=== PATIENT | female | born 1955 | race Caucasian/White ===

== ENCOUNTER 2017-05-28 17:32 | Inpatient (IN) | payer MEDICARE, BC ==
[2017-05-28] MEDS ORDERED: methylPREDNISolone Sod Succ/PF 125 MG/2 ML VIAL ONE (18:00)
[2017-05-28 18:04] LABS: Oxyhemoglobin 94.1 % (94.0-97.0)
[2017-05-28 18:05] LABS: Modified Allen's Test POSITIVE; Sodium 139 mmol/L (135-148); Vent NO
[2017-05-28] MEDS ORDERED: Magnesium 2 GM/NS 0.9% 50 ML 2 GM in Premix Bag 1 BAG IVPB SCH (18:15)
[2017-05-28 18:59] LABS: Troponin I Less than 0.010 ng/mL (< 0.028)
[2017-05-28] MEDS ORDERED: Nitroglycerin 0.4 MG TAB (25 Tab Bottle) ONE (18:59)
[2017-05-28 19:03] LABS: ALT (SGPT) 9 U/L (8-55); AST (SGOT) 14 U/L (5-34); Alkaline Phosphatase 77 U/L (40-150); Anion Gap 12 mmol/L (10-20); BUN (Urea Nitrogen) 40 mg/dL (9.8-20.1); Bilirubin, Total 0.2 mg/dL (0.2-1.2); Calc. Creatinine Clearance 0 mL/min (70-130); Calcium 9.4 mg/dL (7.8-10.44); Carbon Dioxide 36 mmol/L (23-31); Chloride 97 mmol/L (98-107); Estimated GFR-MDRD 35; Globulin 3.6 g/dL (2.4-3.5); Protein, Total 7.3 g/dL (6.0-8.3)
[2017-05-28 19:06] LABS: #Eosinphils 0.1 thou/uL (0.0-0.7); #Lymphocytes 1.2 thou/uL (1.20-3.40); #Monocytes 0.8 thou/uL (0.11-0.59); #Neutrophils 8.1 thou/uL (1.40-6.50); %Basophils 0.3 % (0.0-1.0); %Eosinophils 0.9 % (0.0-10.0); %Lymphocytes 11.8 % (21.0-51.0); %Monocytes 7.6 % (0.0-10.0); Hematocrit 34.6 % (36.0-47.0); Mean Platelet Volume 7.3 fL (7.4-10.4); Red Blood Cell (RBC) Count 3.64 mill/uL (4.20-5.40); White Blood Cell (WBC) Count 10.2 thou/uL (4.8-10.8)
--- NOTE | 2017-05-28 19:06 | RAD ---
PORTABLE CHEST 1 VIEW: Date: 05/28/17 Time: 1738 hours HISTORY: Shortness of breath. FINDINGS: Comparison made with exam of 11/19/14. The heart size is enlarged. There is pulmonary vascular congestion. Mild infiltrates in the lower jeff ng summers cannot be excluded. No pneumothoraces or large effusions are seen. IMPRESSION: Mild CHF. POS: [facility]
[2017-05-28 19:22] LABS: Basophilic Stippling SLIGHT = 1-2 cells (100X) (None Seen); Polychromasia SLIGHT = 2-3 cells (100X) (0-2/hpf); Target Cells SLIGHT = 2-5 cells (100X) (0-1/hpf)
[2017-05-28] MEDS ORDERED: Insulin Regular 300 UNITS/3 ML VIAL ONE (20:21)
[2017-05-28] MEDS ORDERED: Dextrose 50% Abboject 50 ML SYRINGE ONE (20:21)
[2017-05-28] MEDS ORDERED: Nitroglycerin 2% Ointment 1 INCH/1 GM Packet ONE (20:21)
[2017-05-28] MEDS ORDERED: Calcium Gluc 4.6 MEQ/10 ML (100 MG/ML) SLOW IVP SCH (20:30)
[2017-05-28] MEDS ORDERED: Nitroglycerin 50 MG/250 ML BOT 250 ML ONE (20:51)
[2017-05-28 21:22] LABS: Sodium 139 mmol/L (135-148)
[2017-05-28 21:23] LABS: Modified Allen's Test POSITIVE; Pressure Support 12 cmH2O; Vent NO
[2017-05-28 21:24] LABS: Mode BIPAP
--- NOTE | 2017-05-28 21:28 | PDOC.EVN ---
Event Note - Event Note Event Note: [id number] h&p dictated 1. ACute on chronic respiratory failure 2. Acute copd exacerbation 3. Hyperkalemia 4. H/O HTN 5. H/O DM type 2 plan: see orders
[2017-05-28] MEDS ORDERED: Albuterol Sulfate 2.5 mg/3 ml Neb NEB PRN (21:43)
[2017-05-28] MEDS ORDERED: Acetaminophen 325 MG TAB PO PRN (21:52)
[2017-05-28] MEDS ORDERED: cefTRIAXone\\ROCEPHIN 1 GM in Sodium Chloride 0.9% 100 ML IVPB SCH (22:00)
[2017-05-28] MEDS ORDERED: hydrALAZINE 20 MG/ML VIAL SLOW IVP PRN (22:35)
[2017-05-28] MEDS ORDERED: Azithromycin 500 MG in Sodium Chloride 0.9% 250 ML 250 ML IVPB SCH (23:00)
[2017-05-28] MEDS ORDERED: cloNIDine 0.2mg/24 Hour PATCH TD SCH (23:00)
[2017-05-28 23:45] LABS: BUN (Urea Nitrogen) 40 mg/dL (9.8-20.1); Calc. Creatinine Clearance 0 mL/min (70-130); Calcium 9.6 mg/dL (7.8-10.44); Estimated GFR-MDRD 37
[2017-05-28 23:52] LABS: Troponin I Less than 0.010 ng/mL (< 0.028)
[2017-05-28 23:54] LABS: Anion Gap 15 mmol/L (10-20); Carbon Dioxide 34 mmol/L (23-31); Chloride 97 mmol/L (98-107)
[2017-05-29] MEDS: methylPREDNISolone Sod Succ/PF 125 MG/2 ML VIAL IVP SCH ×2 (00:04→05:49)
[2017-05-29] MEDS ORDERED: Dextrose 50% Abboject 50 ML SYRINGE SLOW IVP PRN (00:25)
[2017-05-29] MEDS ORDERED: hydrALAZINE 20 MG/ML VIAL SLOW IVP PRN (00:27)
[2017-05-29] MEDS ORDERED: Furosemide 40 MG/4 ML VIAL SLOW IVP SCH (00:30)
[2017-05-29] MEDS ORDERED: Insulin Regular 300 UNITS/3 ML VIAL IVP SCH (00:30)
[2017-05-29] MEDS ORDERED: cloNIDine 0.2 MG TAB PO SCH (00:30)
[2017-05-29] MEDS ORDERED: Dextrose 50% Abboject 50 ML SYRINGE IVP PRN (01:59)
[2017-05-29] MEDS ORDERED: Dextrose 5% in Water 1,000 ML IV PRN (01:59)
[2017-05-29] MEDS ORDERED: cefTRIAXone\\ROCEPHIN 1 GM in Sodium Chloride 0.9% 100 ML IVPB SCH (02:00)
[2017-05-29 02:03] LABS: Bilirubin Negative (Negative); Blood, Urine Negative (Negative); Glucose, Urine (Dipstick) 100 mg/dL (Negative); Ketone, Urine Trace mg/dL (Negative); Nitrite Negative (Negative); Protein, Urine (Dipstick) 30 mg/dL (Neg-Trace); Urobilinogen 0.2 mg/dL (0.2-1.0)
[2017-05-29 02:05] LABS: Bacteria/HPF None Seen HPF (None Seen); Hyaline Casts/LPF 4-6 HYALINE CAST LPF (0-3 Hyaline); Squamous Epithelial 0-3 HPF (0-3); WBC/HPF 0-3 HPF (0-3)
[2017-05-29 02:16] LABS: RBC/HPF 0-3 HPF (0-3)
[2017-05-29 02:56] VITALS: BMI 50.1
[2017-05-29] MEDS: HumaLOG 300 UNITS/3 ML VIAL SC PRN ×3 (05:00→21:35)
[2017-05-29 05:40] LABS: #Eosinphils 0.1 thou/uL (0.0-0.7); #Lymphocytes 0.5 thou/uL (1.20-3.40); #Neutrophils 7.8 thou/uL (1.40-6.50); %Eosinophils 0.7 % (0.0-10.0); %Monocytes 0.5 % (0.0-10.0); Hematocrit 34.5 % (36.0-47.0); Mean Platelet Volume 7.7 fL (7.4-10.4); Red Blood Cell (RBC) Count 3.67 mill/uL (4.20-5.40); White Blood Cell (WBC) Count 8.4 thou/uL (4.8-10.8)
[2017-05-29 05:49] LABS: Anion Gap 13 mmol/L (10-20); BUN (Urea Nitrogen) 41 mg/dL (9.8-20.1); Calc. Creatinine Clearance 84 mL/min (70-130); Calcium 9.6 mg/dL (7.8-10.44); Carbon Dioxide 36 mmol/L (23-31); Chloride 94 mmol/L (98-107); Estimated GFR-MDRD 38
[2017-05-29] MEDS: Levothyroxine Sodium 25 MCG TAB PO SCH (05:49)
[2017-05-29 05:51] LABS: Troponin I Less than 0.010 ng/mL (< 0.028)
--- NOTE | 2017-05-29 06:51 | HP ---
DATE OF ADMISSION: 05/28/2017 CHIEF COMPLAINT: Dyspnea. HISTORY OF PRESENT ILLNESS: Patient is a 62-year-old female with past medical history of COPD, hype rtension, hyperlipidemia, diabetes mellitus type 2, hypothyroidism, chronic respiratory failure, obs tructive sleep apnea, now came to the hospital because of dyspnea. Dyspnea started few days back, c onstant. The patient tried breathing treatments at home, it did not help her. The patient complain s of some cough covered with some sputum production, white in color. Denies any fever, denies any c hills, denies any chest pain, denies any chest tightness, denies any palpations, denies any dizzines s. Patient has some frequent COPD exacerbation. She gets at least one or two exacerbations per yea r and her last exacerbation was approximately 1 year back. The patient's breathing got worse, so sulaiman humphries came to the ER. Upon ER arrival, the patient was hypoxic, so the patient was placed on BiPAP and the patient's breathing improved after placing on BiPAP. The patient denies any complaints at this time. PAST MEDICAL HISTORY: As per HPI. PAST SURGICAL HISTORY: Colonoscopy, bladder surgery. SOCIAL HISTORY: Denies smoking, denies alcohol, denies any drugs. FAMILY HISTORY: Denies any heart problems. REVIEW OF SYSTEMS: Constitutional: Denies any fever, denies any chills. Eyes: No vision problems . Ears: Denies hearing loss. Neck: Denies any neck pain. Cardiovascular System: Denies chest p ain, denies palpitation. Respiratory system: Positive for dyspnea, positive for cough and sputum p roduction. Integument: Denies any rash. Cranial nervous system: Denies syncope, denies lighthead edness. Psychiatric: Denies anxiety. Musculoskeletal: Denies any joint deformities. All other r eview of systems are reviewed and are negative. PHYSICAL EXAMINAITON: CONSTITUTIONAL/VITAL SIGNS: At the time of H\T\P performed, blood pressure is 227/87, pulse oximetr y 98%, heart rate 82, respiratory rate 18. GENERAL: The patient appears tired. HEENT: Anterior nares patent. Hearing normal. Teeth intact. Tongue is moist. NECK: Supple, no JVD. CARDIOVASCULAR: S1, S2 present. Regular rate and rhythm, no murmurs, no rubs, no gallops. RESPIRATORY: Diminished breath sounds present. Positive for wheezing. Positive for rhonchi on BiP AP. GASTROINTESTINAL: Abdomen is soft, nontender, no guarding, no organomegaly, no masses felt. MUSCULOSKELETAL: No edema. INTEGUMENTARY: No rashes seen. PSYCHIATRIC: Mood appropriate at this time. LABORATORY DATA: At the time of H\T\P performed, sodium 138, potassium 6.5, chloride 97, CO2 36, BU N 40, creatinine 1.49. Troponin less than 0.010, BNP 107. Serum total protein 7.3, pH 7.24, pCO2 o f 99.2, bicarbonate is 41.2. Repeat gas after placing BiPAP, pH 7.27, pCO2 88, bicarbonate is 39.8. CBC showed white count 10.2, hemoglobin 10.1, platelet count is 237. ASSESSMENT AND PLAN: The patient is 62-year-old female: 1. Acute on chronic respiratory failure, hypercapnic plus hypoxic. Plan to continue BiPAP. Plan t o monitor her respiratory status closely. Plan to consult Pulmonary and Critical care to monitor th e patient. 2. Acute chronic obstructive pulmonary disease exacerbation. Plan to start the patient on IV antib iotics and also on breathing treatments and steroids and monitor her respiratory status closely. 3. Hyperkalemia plus chronic kidney disease stage 3. Monitor creatinine closely, potassium level s ignificantly elevated. We will plan to treat medically. Hold off on Kayexalate as patient is curre ntly on BiPAP. We will give insulin, dextrose and calcium gluconate, and we will continue breathing treatments, check BMP in 4 hours. 5. History of hypertension, monitor blood pressures, continue home blood pressure medications. 6. History of diabetes type 2. Monitor blood sugars. We will do insulin sliding scale. 7. . Continue Synthroid. The case was discussed in detail with the patient. The patient is full code.
[2017-05-29] MEDS: FLUoxetine HCl 10 MG CAP PO SCH ×2 (08:56→08:59)
[2017-05-29] MEDS: Furosemide 40 MG TAB PO SCH (08:56)
[2017-05-29] MEDS: Enoxaparin Sodium 40 MG/0.4 ML SYRINGE SC SCH ×2 (08:56→09:01)
[2017-05-29] MEDS: Aspirin 81 mg Enteric Coated Tablet PO SCH (08:56)
[2017-05-29] MEDS ORDERED: Non-Formulary Item 1 EACH (Insulin Glargine,Hum.Rec.Anlog 20 UNIT) SQ SCH (09:00)
[2017-05-29] MEDS ORDERED: Fenofibrate Nanocrystallized 145 MG TAB PO SCH (09:00)
[2017-05-29] MEDS: Insulin Detemir 100 UNITS/ML 20 UNITS in Pre-Filled Syringe 1 EACH SC SCH (09:20)
[2017-05-29] MEDS: Mometasone/Formoterol 120 PUFF INHALER INH SCH ×2 (09:32→18:49)
--- NOTE | 2017-05-29 09:54 | CON ---
DATE OF CONSULTATION: 05/29/2017 HISTORY: A 62-year-old female who sees Dr. Valerio. She is morbidly obese, BMI of 49.26, height 5 feet 4, who was admitted with shortness of breath. She went to see her primary care physician efra charles, but she was told they had an appointment. She went to the ER here for ongoing evaluation. S he is markedly short of breath. She was denying any chest pain, chills or sweats. On most days, she can barely walk a couple of fee t without getting markedly dyspneic. She is a non-smoker. She sees Dr. Valerio on a regular basis. She has several lung nodules on the CT of her chest for which a PET scan was done which was negative . Additionally, she has had a formal sleep study by Dr. Valerio which shows moderate obstructive sl eep apnea, corrected with auto BiPAP. PAST MEDICAL HISTORY: Otherwise, pertinent for COPD, diabetes, peripheral vascular disease. PAST SURGICAL HISTORY: Include some kind of a leg vein surgery, bladder surgery. MEDICATIONS: From home includes low flow O2, nebulizer, prednisone 20, glyburide 10, Ventolin, andrew phylline, Aldactone, Dulera, Synthroid, Lasix, Prozac, Omnicef. REVIEW OF SYSTEMS: A 12-point review of systems otherwise unremarkable. PHYSICAL EXAMINATION: GENERAL: Her sats on 2 liters are 93, pulse 90, blood pressure 138/80. CHEST: Decreased breath sounds without any wheezing. CARDIAC: Normal S1. Normal S2. ABDOMEN: Soft. No masses. LABORATORY: White count 8000, H\T\H 9 and 34, platelet count is 217. Creatinine 1.4, potassium 6. IMPRESSION: 1. Acute on chronic respiratory failure. 2. Morbid obesity. 3. Sleep apnea. 4. Diabetes. PLAN: I agree with empiric antibiotics, continue steroids, nebulizer treatments. She can be moved to telemetry. PT and supportive care. I will follow. This is a 45 minutes critical care time.
--- NOTE | 2017-05-29 12:01 | CON ---
DATE OF CONSULTATION: 05/29/2017 SERVICE: Renal Medicine. HISTORY OF PRESENT ILLNESS: Ms. Lewis is a 62-year-old white female with a history of hypertension, COPD, type 2 diabetes mellitus, hypothyroidism, and admitted for mild shortness of breath. We are being consulted for her hyperkalemia. Initial potassium was 6.5. She was given Kayexalate with imp rovement in the potassium to 6.0. Please note, patient may have underlying chronic heart problem fr om diabetic nephropathy. Please note, she has longstanding diabetes. REVIEW OF SYSTEMS: Mild shortness of breath, no chest pain, no syncopal episode, chronic leg edema, no nausea, no vomiting, no diarrhea, no headache. Appetite and energy level are fair. No abdomina l pain, no hematochezia, no melena, no hematemesis, no headache, no sore throat, no fever or chills. MEDICATIONS: DuoNeb q.4 hours, Ecotrin 81 mg tab once a day, ceftriaxone 1 gram q.24 hours, clonidi ne patch TTS 2 every 7 days, Lovenox 40 mg subcu daily, TriCor 145 mg once a day, Prozac 10 mg daily , furosemide 40 mg daily, hydralazine 10 mg IV q.6 hours p.r.n., insulin detemir 20 units subcu q.a. m., Humalog sliding scale, Synthroid 25 mcg daily, Solu-Medrol 40 mg IV daily, Dulera oral inhaler. PAST MEDICAL HISTORY: 1. COPD. 2. Type 2 diabetes mellitus, ? of chronic renal failure. 3. Depression. 4. Hyperlipidemia. 5. History of obstructive sleep apnea. 6. Chronic low back pain. 7. Hypertension. PAST SURGICAL HISTORY: 1. Status post colonoscopy. 2. Status post bladder surgery. 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 No IV drug abuse. Occasional alcohol, no smoking. Sedentary life style. ALLERGIES: IODINE and STATINS?. IMMUNIZATIONS: Not up-to-date. HOSPITALIZATIONS: Please see past medical history. TRAUMA: None. FAMILY HISTORY: Noncontributory. PHYSICAL EXAMINATION: VITAL SIGNS: Blood pressure is 162/65, heart rate 88, respiratory rate is 21, pulse ox 94%. GENERAL EXAM: Awake, supine, comfortable, morbidly obese. SKIN: Adequate turgor. HEENT: Pinkish conjunctivae, anicteric sclerae. NECK: No neck mass, no carotid bruits, no JVD. CHEST: No deformities. LUNGS: Decreased breath sounds. No wheezing, no crackles. HEART: Normal sinus rhythm. No murmur, no gallops, no rubs. ABDOMEN: Globular, soft, nontender, no masses. EXTREMITIES: No edema, no deformities. LABORATORY AND X-RAY FINDINGS: Laboratories of 05/29/2017, white count 8.4, hemoglobin 9.8, hematoc rit 34.5, platelet count is 217,000. Sodium 137, potassium 6, chloride 94, carbon dioxide 36, BUN 4 1, creatinine 1.41, glucose 417, calcium 9.6. Urinalysis shows specific gravity 18 and protein is 30. Chest x-ray of 05/28/2017, mild CHF. ASSESSMENT AND PLAN: 1. Shortness of breath -- multifactorial. This could be chronic obstructive pulmonary disease exac erbation as well as from congestive heart failure. She is currently receiving Lasix at the present time. Continue current management. 2. Chronic renal failure -- this could be underlying diabetic nephropathy as suggested by the prote inuria. Continue supportive care. 3. Hyperkalemia. This is most likely drug induced. Please note she was on spironolactone and on A CE inhibitors. These medications have been discontinued. Continue supportive care. There is no in dication for any dialytic intervention with this patient.
--- NOTE | 2017-05-29 12:09 | PDOC.PN ---
- Subjective Encounter Start Date: 05/29/17 Encounter Start Time: 07:15 Subjective: had a large bm this am -: no chest pain or sob -: wants her bipap taken off - Objective MAR Reviewed: Yes Vital Signs & Weight: Vital Signs (12 hours) Temp Pulse Resp BP Pulse Ox 05/29/17 09:32 90 22 H 98 05/29/17 09:29 98 05/29/17 08:00 99.4 F 89 20 94 L 05/29/17 07:51 92 20 92 L 05/29/17 07:48 92 20 92 L 05/29/17 04:00 96.9 F L 05/29/17 02:27 90 20 86 L 05/29/17 02:26 90 28 H 86 L 05/29/17 01:07 226/86 H 05/29/17 01:06 78 185/70 H Weight Weight 286 lb 9.615 oz Most Recent Monitor Data Heart Rate from ECG 95 NIBP 149/69 NIBP BP-Mean 90 Respiration from ECG 25 SpO2 96 I&O: 05/28/17 05/29/17 05/30/17 06:59 06:59 06:59 Intake Total 500 300 Output Total 1865 875 Balance -6374 -635 Result Diagrams: 05/29/17 05:23 05/29/17 05:23 Additional Labs: Accuchecks 05/29/17 05/29/17 05/29/17 09:19 05:22 00:22 POC Glucose 276 H 398 H 276 H Phys Exam - Physical Examination HEENT: PERRLA, moist MMs Neck: no JVD, supple Respiratory: no wheezing, no rales Cardiovascular: RRR, no significant murmur Gastrointestinal: soft, non-tender, positive bowel sounds Musculoskeletal: no edema, pulses present Neurological: non-focal, moves all 4 limbs Dx/Plan (1) Acute respiratory failure with hypoxia Code(s): J96.01 - ACUTE RESPIRATORY FAILURE WITH HYPOXIA Status: Acute (2) Hyperkalemia Code(s): E87.5 - HYPERKALEMIA Status: Acute (3) COPD with exacerbation Code(s): J44.1 - CHRONIC OBSTRUCTIVE PULMONARY DISEASE W (ACUTE) EXACERBATION Status: Acute (4) DM type 2 (diabetes mellitus, type 2) Status: Chronic Qualifiers: Diabetes mellitus complication status: with hyperglycemia 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 insulin use: with jail use Qualified Code(s): E11.65 - Type 2 diabetes mellitus with hyperglycemia; Z79.4 - alf (current) use of insulin; Z79.4 - watermelon 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 (current) use of insulin; Z79.4 - alf ( current) use of insulin; Z79.4 - alf (current) use of insulin (5) HTN (hypertension) Code(s): I10 - ESSENTIAL (PRIMARY) HYPERTENSION Status: Chronic Qualifiers: Hypertension type: essential hypertension Qualified Code(s): I10 - Essential (primary) hypertension (6) Dyslipidemia Code(s): E78.5 - HYPERLIPIDEMIA, UNSPECIFIED Status: Chronic (7) Obesity Code(s): E66.9 - OBESITY, UNSPECIFIED Status: Chronic Qualifiers: Body mass index: BMI 45.0-49.9 (8) Chronic anemia Code(s): D64.9 - ANEMIA, UNSPECIFIED Status: Chronic - Plan is on bipap, wants to come out of it, await pulm consultation -: hyperkalemia, has been consulted, got 1 dose of kayexalate in ER -: on zithromax and ceftriaxone -: steroids iv and nebs -: oral diet once off bipap-heart healthy, 1800kcal ada * . Review of Systems - Medications/Allergies Allergies/Adverse Reactions: Allergies Allergy/AdvReac Type Severity Reaction Status Date / Time influenza virus vacc Allergy Verified 11/19/14 20:12 trivalent, spl [From Fluzone] iodine Allergy Verified 11/19/14 20:12 shellfish derived Allergy Verified 11/19/14 20:12 Statins Allergy Uncoded 05/28/17 22:21 Medications: Current Medications Acetaminophen (Tylenol) 650 mg PO Q4H PRN PRN Reason: Headache/Fever or Pain Albuterol Sulfate (Ventolin) 2.5 mg NEB [id number] PRN PRN Reason: SOB &/or Wheezing Albuterol/Ipratropium (Duoneb) 3 ml NEB [id number] [facility] Last Admin: 05/29/17 07:48 Dose: 3 ml Aspirin (Ecotrin) 81 mg PO DAILY [facility] Last Admin: 05/29/17 08:56 Dose: 81 mg Clonidine (Ojyluyls-Mme-4) 0.2 mg TD Q7D [facility] Last Admin: 05/28/17 23:04 Dose: 0.2 mg Dextrose/Water (Dextrose 50%) 25 gm SLOW IVP ONE PRN PRN Reason: Hypoglycemia Stop: 05/30/17 00:26 Last Admin: 05/29/17 01:08 Dose: 25 gm Dextrose/Water (Dextrose 50%) 25 gm IVP PRN PRN PRN Reason: HYPOGLYCEMIA PROTOCOL Furosemide (Lasix) 40 mg PO DAILY-AC [facility] Last Admin: 05/29/17 08:56 Dose: 40 mg Glucagon (Glucagon) 1 mg IM PRN PRN PRN Reason: HYPOGLYCEMIA PROTOCOL Heparin Sodium (Porcine) (Heparin) 5,000 units SC BID [facility] Hydralazine HCl (Apresoline) 10 mg SLOW IVP Q6H PRN PRN Reason: SBP > 160 [facility] Last Admin: 05/29/17 01:06 Dose: 10 mg Insulin Detemir 20 units/ (Miscellaneous Medication) 0.2 mls @ 0 mls/hr SC QAM [facility] Last Admin: 05/29/17 09:20 Dose: 0.2 mls Ceftriaxone Sodium 1 gm/ (Sodium Chloride) 100 mls @ 200 mls/hr IVPB Q24HR [facility] Last Admin: 05/29/17 02:25 Dose: 100 mls Dextrose/Water (D5w) 1,000 mls @ 0 mls/hr IV INF PRN; As Directed PRN Reason: HYPOGLYCEMIA PROTOCOL Insulin Human Lispro (Humalog) 0 units SC .MILD SLIDING SCALE PRN; Protocol PRN Reason: MILD SLIDING SCALE Last Admin: 05/29/17 05:00 Dose: 6 unit Levothyroxine Sodium (Synthroid) 25 mcg PO 0600 [facility] Last Admin: 05/29/17 05:49 Dose: 25 mcg Methylprednisolone Sodium Succinate (Solu-Medrol) 40 mg IVP BID [facility] Mometasone Furoate/Formoterol Fumar (Dulera 200 Mcg/5 Mcg Inhaler) 1 puff INH BID-RT [facility] Last Admin: 05/29/17 09:32 Dose: 1 puff Sodium Chloride (Flush - Normal Saline) 10 ml IVF Q12HR [facility] Last Admin: 05/29/17 08:57 Dose: 10 ml Sodium Chloride (Flush - Normal Saline) 10 ml IVF PRN PRN PRN Reason: Saline Flush Theophylline (Theophylline Er) 600 mg PO DAILY [facility] Last Admin: 05/29/17 08:58 Dose: 600 mg
[2017-05-29] MEDS: Acetaminophen 325 MG TAB PO PRN (21:28)
[2017-05-29] MEDS: Heparin 5,000 UNITS/ML VIAL SC SCH (21:28)
[2017-05-29] MEDS ORDERED: cefTRIAXone\\ROCEPHIN 1 GM, Admixture Fee 1 EACH in Sodium Chloride 0.9% 100 ML IVPB SCH (23:00)
[2017-05-30 05:26] LABS: #Lymphocytes 0.7 thou/uL (1.20-3.40); #Monocytes 0.4 thou/uL (0.11-0.59); #Neutrophils 10.6 thou/uL (1.40-6.50); %Eosinophils 0.4 % (0.0-10.0); %Lymphocytes 6.3 % (21.0-51.0); %Monocytes 3.6 % (0.0-10.0); Hematocrit 34.7 % (36.0-47.0); Mean Platelet Volume 7.6 fL (7.4-10.4); Red Blood Cell (RBC) Count 3.76 mill/uL (4.20-5.40); White Blood Cell (WBC) Count 11.8 thou/uL (4.8-10.8)
[2017-05-30 05:42] LABS: BUN (Urea Nitrogen) 37 mg/dL (9.8-20.1); Calc. Creatinine Clearance 83 mL/min (70-130); Calcium 9.3 mg/dL (7.8-10.44); Estimated GFR-MDRD 37
[2017-05-30] MEDS: Levothyroxine Sodium 25 MCG TAB PO SCH (05:45)
[2017-05-30] MEDS: Acetaminophen 325 MG TAB PO PRN ×2 (05:45→22:48)
[2017-05-30] MEDS: Furosemide 40 MG TAB PO SCH (05:45)
[2017-05-30 05:51] LABS: Anion Gap 12 mmol/L (10-20); Carbon Dioxide 40 mmol/L (23-31); Chloride 91 mmol/L (98-107)
[2017-05-30] MEDS: Mometasone/Formoterol 120 PUFF INHALER INH SCH ×2 (06:04→18:35)
[2017-05-30] MEDS: HumaLOG 300 UNITS/3 ML VIAL SC PRN ×4 (06:37→21:47)
[2017-05-30] MEDS: Aspirin 81 mg Enteric Coated Tablet PO SCH (09:14)
[2017-05-30] MEDS: metFORMIN 500 MG TAB PO SCH ×2 (09:14→16:59)
[2017-05-30] MEDS: Amlodipine 10 MG TAB PO SCH (09:17)
[2017-05-30] MEDS: Insulin Detemir 100 UNITS/ML 20 UNITS in Pre-Filled Syringe 1 EACH SC SCH (09:18)
[2017-05-30] MEDS: Heparin 5,000 UNITS/ML VIAL SC SCH ×2 (09:20→20:27)
--- NOTE | 2017-05-30 11:53 | PDOC.PN ---
- Subjective Encounter Start Date: 05/30/17 Encounter Start Time: 10:30 Subjective: is sitting in chair, no sob - Objective MAR Reviewed: Yes Vital Signs & Weight: Vital Signs (12 hours) Temp Pulse Resp BP BP Pulse Ox 05/30/17 11:33 98.6 F 96 20 174/54 H 93 L 05/30/17 10:27 89 16 95 05/30/17 09:17 97 05/30/17 09:15 203/68 H 05/30/17 08:00 98.6 F 89 16 95 05/30/17 07:47 98.6 F 90 20 185/62 H 95 05/30/17 06:01 88 16 91 L 05/30/17 04:00 98.7 F 95 19 163/55 H 91 L 05/30/17 02:29 92 16 92 L Weight Weight 286 lb 9.615 oz Most Recent Monitor Data Heart Rate from ECG 93 NIBP 143/64 NIBP BP-Mean 70 Respiration from ECG 28 SpO2 85 I&O: 05/29/17 05/30/17 05/31/17 06:59 06:59 06:59 Intake Total 500 850 Output Total 2300 2064 Balance -9250 -6298 Result Diagrams: 05/30/17 04:31 05/30/17 04:31 Additional Labs: Accuchecks 05/30/17 05/29/17 06:05 20:49 POC Glucose 363 H 430 H Phys Exam - Physical Examination HEENT: PERRLA, moist MMs Neck: no JVD, supple Respiratory: no wheezing, no rales Cardiovascular: RRR, no significant murmur Gastrointestinal: soft, non-tender, positive bowel sounds Musculoskeletal: no edema, pulses present Neurological: non-focal, moves all 4 limbs Psychiatric: A&O x 3 Dx/Plan (1) Acute respiratory failure with hypoxia Code(s): J96.01 - ACUTE RESPIRATORY FAILURE WITH HYPOXIA Status: Resolved (2) Hyperkalemia Code(s): E87.5 - HYPERKALEMIA Status: Resolved (3) COPD with exacerbation Code(s): J44.1 - CHRONIC OBSTRUCTIVE PULMONARY DISEASE W (ACUTE) EXACERBATION Status: Acute (4) DM type 2 (diabetes mellitus, type 2) Status: Chronic Qualifiers: Diabetes mellitus complication status: with hyperglycemia Diabetes mellitus nursing 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 Qualified Code(s): E11.65 - Type 2 diabetes mellitus with hyperglycemia; Z79.4 - MCC (current) use of insulin; Z79.4 - MCC (current) use of insulin; Z79.4 - MCC ( current) use of insulin; Z79.4 - MCC (current) use of insulin (5) HTN (hypertension) Code(s): I10 - ESSENTIAL (PRIMARY) HYPERTENSION Status: Chronic Qualifiers: Hypertension type: essential hypertension Qualified Code(s): I10 - Essential (primary) hypertension (6) Dyslipidemia Code(s): E78.5 - HYPERLIPIDEMIA, UNSPECIFIED Status: Chronic (7) Obesity Code(s): E66.9 - OBESITY, UNSPECIFIED Status: Chronic Qualifiers: Body mass index: BMI 45.0-49.9 (8) Chronic anemia Code(s): D64.9 - ANEMIA, UNSPECIFIED Status: Chronic (9) Sleep apnea Code(s): G47.30 - SLEEP APNEA, UNSPECIFIED Status: Chronic - Plan says her home cpap might be broken, she has called her Co and awaiting repa -: ir, will need cpap at night here -: to amb in [facility], i.spirometer -: dm is uncontrolled due to steroids, will continue her home meds -: december tx to med floor if ok with * . Review of Systems - Medications/Allergies Allergies/Adverse Reactions: Allergies Allergy/AdvReac Type Severity Reaction Status Date / Time influenza virus vacc Allergy Verified 11/19/14 20:12 trivalent, spl [From Fluzone] iodine Allergy Verified 11/19/14 20:12 shellfish derived Allergy Verified 11/19/14 20:12 Statins Allergy Uncoded 05/28/17 22:21 Medications: Current Medications Acetaminophen (Tylenol) 650 mg PO Q4H PRN PRN Reason: Headache/Fever or Pain Last Admin: 05/30/17 05:45 Dose: 650 mg Albuterol Sulfate (Ventolin) 2.5 mg NEB [id number] PRN PRN Reason: SOB &/or Wheezing Albuterol/Ipratropium (Duoneb) 3 ml NEB [id number] [facility] Last Admin: 05/30/17 10:27 Dose: 3 ml Amlodipine Besylate (Norvasc) 10 mg PO DAILY [facility] Last Admin: 05/30/17 09:17 Dose: 10 mg Aspirin (Ecotrin) 81 mg PO DAILY [facility] Last Admin: 05/30/17 09:14 Dose: 81 mg Benazepril HCl (Lotensin) 20 mg PO DAILY [facility] Last Admin: 05/30/17 09:15 Dose: 20 mg Cefdinir (Omnicef) 300 mg PO BID [facility] Clonidine (Fojfhkcu-Hse-8) 0.2 mg TD Q7D [facility] Last Admin: 05/28/17 23:04 Dose: 0.2 mg Dextrose/Water (Dextrose 50%) 25 gm IVP PRN PRN PRN Reason: HYPOGLYCEMIA PROTOCOL Furosemide (Lasix) 40 mg PO DAILY-[facility] Last Admin: 05/30/17 05:45 Dose: 40 mg Glipizide (Glucotrol Xl) 10 mg PO BID-[facility] Last Admin: 05/30/17 09:13 Dose: 10 mg Glucagon (Glucagon) 1 mg IM PRN PRN PRN Reason: HYPOGLYCEMIA PROTOCOL Heparin Sodium (Porcine) (Heparin) 5,000 units SC BID [facility] Last Admin: 05/30/17 09:20 Dose: 5,000 units Hydralazine HCl (Apresoline) 10 mg SLOW IVP Q6H PRN PRN Reason: SBP > 160 [facility] Last Admin: 05/29/17 01:06 Dose: 10 mg Insulin Detemir 20 units/ (Miscellaneous Medication) 0.2 mls @ 0 mls/hr SC [facility] Last Admin: 05/30/17 09:18 Dose: 0.2 mls Dextrose/Water (D5w) 1,000 mls @ 0 mls/hr IV INF PRN; As Directed PRN Reason: HYPOGLYCEMIA PROTOCOL Insulin Human Lispro (Humalog) 0 units SC .MILD SLIDING SCALE PRN; Protocol PRN Reason: MILD SLIDING SCALE Last Admin: 05/30/17 06:37 Dose: 6 unit Levothyroxine Sodium (Synthroid) 25 mcg PO 0600 [facility] Metformin HCl (Glucophage) 500 mg PO BID-[facility] Last Admin: 05/30/17 09:14 Dose: 500 mg Mometasone Furoate/Formoterol Fumar (Dulera 200 Mcg/5 Mcg Inhaler) 1 puff INH BID-RT [facility] Last Admin: 05/30/17 06:04 Dose: 1 puff Prednisone (Prednisone) 40 mg PO QAM-[facility] Sodium Chloride (Flush - Normal Saline) 10 ml IVF Q12HR [facility] Last Admin: 05/30/17 09:20 Dose: 10 ml Sodium Chloride (Flush - Normal Saline) 10 ml IVF PRN PRN PRN Reason: Saline Flush Theophylline (Theophylline Er) 600 mg PO DAILY [facility] Last Admin: 05/30/17 09:17 Dose: 600 mg
--- NOTE | 2017-05-30 13:10 | PRG ---
DATE OF SERVICE: 05/30/2017 SUBJECTIVE: This is a patient of Dr. Valerio, who said this morning she is better. She would like to be moved to an unmonitored bed. She is not coughing or wheezing. PHYSICAL EXAMINATION: VITAL SIGNS: Blood pressure 185/62, pulse 90, respirations 20, and sats are 95%. CHEST: Decreased breath sounds, no wheezing. CARDIAC: Normal S1 and S2. No gallops. ABDOMEN: Soft. No masses. LABORATORY DATA: White count 11,000, hemoglobin and hematocrit 10 and 34, platelet count normal. C reatinine 1.4. IMPRESSION: Morbid obesity, respiratory failure, renal failure, chronic obstructive pulmonary disea se, bronchitis, diabetes, obstructive sleep apnea. PLAN: Switch over to oral antibiotics and prednisone. She will be transferred to medical floor.
[2017-05-30] MEDS: Cefdinir 300 MG CAP PO SCH (20:27)
[2017-05-31] MEDS: Levothyroxine Sodium 25 MCG TAB PO SCH (05:42)
[2017-05-31] MEDS: HumaLOG 300 UNITS/3 ML VIAL SC PRN ×3 (05:42→21:48)
[2017-05-31] MEDS: Mometasone/Formoterol 120 PUFF INHALER INH SCH ×2 (06:18→18:29)
[2017-05-31] MEDS ORDERED: Mometasone/Formoterol 120 PUFF INHALER INH SCH (07:00)
[2017-05-31] MEDS: Heparin 5,000 UNITS/ML VIAL SC SCH ×2 (08:00→21:47)
[2017-05-31] MEDS: Insulin Detemir 100 UNITS/ML 20 UNITS in Pre-Filled Syringe 1 EACH SC SCH (08:00)
[2017-05-31] MEDS: predniSONE 20 MG TAB PO SCH (08:01)
[2017-05-31] MEDS: Amlodipine 10 MG TAB PO SCH (08:01)
[2017-05-31] MEDS: Cefdinir 300 MG CAP PO SCH ×2 (08:01→21:47)
[2017-05-31] MEDS: Aspirin 81 mg Enteric Coated Tablet PO SCH (08:01)
[2017-05-31] MEDS: Furosemide 40 MG TAB PO SCH (08:02)
[2017-05-31] MEDS: metFORMIN 500 MG TAB PO SCH ×2 (08:02→16:42)
[2017-05-31 08:11] LABS: #Monocytes 1.2 thou/uL (0.11-0.59); #Neutrophils 8.2 thou/uL (1.40-6.50); %Basophils 0.2 % (0.0-1.0); %Eosinophils 0.4 % (0.0-10.0); %Lymphocytes 17.3 % (21.0-51.0); %Monocytes 10.2 % (0.0-10.0); Hematocrit 35.8 % (36.0-47.0); Mean Platelet Volume 7.6 fL (7.4-10.4); Red Blood Cell (RBC) Count 3.88 mill/uL (4.20-5.40); White Blood Cell (WBC) Count 11.4 thou/uL (4.8-10.8)
[2017-05-31 08:29] LABS: BUN (Urea Nitrogen) 38 mg/dL (9.8-20.1); Calc. Creatinine Clearance 94 mL/min (70-130); Calcium 9.4 mg/dL (7.8-10.44); Estimated GFR-MDRD 43
[2017-05-31 08:48] LABS: Chloride 91 mmol/L (98-107)
[2017-05-31 08:51] LABS: Anion Gap 13 mmol/L (10-20)
[2017-05-31 08:53] LABS: Carbon Dioxide 41 mmol/L (23-31)
--- NOTE | 2017-05-31 11:59 | PDOC.PN ---
- Subjective Encounter Start Date: 05/31/17 Encounter Start Time: 11:25 Subjective: breathing better, is sitting in chair - Objective MAR Reviewed: Yes Vital Signs & Weight: Vital Signs (12 hours) Temp Pulse Resp BP BP Pulse Ox 05/31/17 10:56 87 16 96 05/31/17 09:29 203/68 H 05/31/17 08:01 87 05/31/17 08:00 98.2 F 87 18 93 L 05/31/17 07:44 98.5 F 87 18 169/67 H 93 L 05/31/17 06:18 81 16 97 05/31/17 06:16 78 16 97 05/31/17 05:20 98.8 F 78 18 154/74 H 95 05/31/17 03:39 96 05/31/17 02:23 81 16 96 05/31/17 00:49 99.2 F 82 18 155/61 H 95 Weight Weight 286 lb 9.615 oz Most Recent Monitor Data Heart Rate from ECG 93 NIBP 143/64 NIBP BP-Mean 70 Respiration from ECG 28 SpO2 85 I&O: 05/30/17 05/31/17 06/01/17 06:59 06:59 06:59 Intake Total 850 850 360 Output Total 3345 Balance -2495 850 360 Result Diagrams: 05/31/17 07:35 05/31/17 07:35 Additional Labs: Accuchecks 05/31/17 05/30/17 05/30/17 04:26 20:09 16:36 POC Glucose 194 H 438 H 444 H 05/30/17 11:05 POC Glucose 391 H Phys Exam - Physical Examination HEENT: PERRLA, moist MMs Neck: no JVD, supple Respiratory: no wheezing, no rales Cardiovascular: RRR, no significant murmur Gastrointestinal: soft, non-tender, positive bowel sounds Musculoskeletal: no edema, pulses present Neurological: non-focal, moves all 4 limbs Psychiatric: A&O x 3 Dx/Plan (1) Acute respiratory failure with hypoxia Code(s): J96.01 - ACUTE RESPIRATORY FAILURE WITH HYPOXIA Status: Resolved (2) Hyperkalemia Code(s): E87.5 - HYPERKALEMIA Status: Resolved (3) COPD with exacerbation Code(s): J44.1 - CHRONIC OBSTRUCTIVE PULMONARY DISEASE W (ACUTE) EXACERBATION Status: Acute (4) DM type 2 (diabetes mellitus, type 2) Status: Chronic Qualifiers: Diabetes mellitus complication status: with hyperglycemia Diabetes mellitus residential insulin use: with residential use Qualified Code(s): E11.65 - Type 2 diabetes mellitus with hyperglycemia; Z79.4 - buttermaker continuous churn (current) use of insulin; Z79.4 - buttermaker continuous churn (current) use of insulin; Z79.4 - shelter ( current) use of insulin; Z79.4 - shelter (current) use of insulin (5) HTN (hypertension) Code(s): I10 - ESSENTIAL (PRIMARY) HYPERTENSION Status: Chronic Qualifiers: Hypertension type: essential hypertension Qualified Code(s): I10 - Essential (primary) hypertension (6) Dyslipidemia Code(s): E78.5 - HYPERLIPIDEMIA, UNSPECIFIED Status: Chronic (7) Obesity Code(s): E66.9 - OBESITY, UNSPECIFIED Status: Chronic Qualifiers: Body mass index: BMI 45.0-49.9 (8) Chronic anemia Code(s): D64.9 - ANEMIA, UNSPECIFIED Status: Chronic (9) Sleep apnea Code(s): G47.30 - SLEEP APNEA, UNSPECIFIED Status: Chronic - Plan increase levemir to 20u bid -: pt is on prednisone 40mg daily with omnicef -: dc in am -: needs her cpap machine to be looked at by her company prior to dc -: uses 2 liters by nc 02/03 at home per patient * . Review of Systems - Medications/Allergies Allergies/Adverse Reactions: Allergies Allergy/AdvReac Type Severity Reaction Status Date / Time influenza virus vacc Allergy Verified 11/19/14 20:12 trivalent, spl [From Fluzone] iodine Allergy Verified 11/19/14 20:12 shellfish derived Allergy Verified 11/19/14 20:12 Statins Allergy Uncoded 05/28/17 22:21 Medications: Current Medications Acetaminophen (Tylenol) 650 mg PO Q4H PRN PRN Reason: Headache/Fever or Pain Last Admin: 05/30/17 22:48 Dose: 650 mg Albuterol Sulfate (Ventolin) 2.5 mg NEB [id number] PRN PRN Reason: SOB &/or Wheezing Albuterol/Ipratropium (Duoneb) 3 ml NEB [id number] Last Admin: 05/31/17 10:56 Dose: 3 ml Amlodipine Besylate (Norvasc) 10 mg PO DAILY [facility] Last Admin: 05/31/17 08:01 Dose: 10 mg Aspirin (Ecotrin) 81 mg PO DAILY [facility] Last Admin: 05/31/17 08:01 Dose: 81 mg Benazepril HCl (Lotensin) 20 mg PO DAILY [facility] Last Admin: 05/31/17 09:29 Dose: 20 mg Cefdinir (Omnicef) 300 mg PO BID [facility] Last Admin: 05/31/17 08:01 Dose: 300 mg Clonidine ([id number]-[id number]-4) 0.2 mg TD Q7D [facility] Last Admin: 05/28/17 23:04 Dose: 0.2 mg Dextrose/Water (Dextrose 50%) 25 gm IVP PRN PRN PRN Reason: HYPOGLYCEMIA PROTOCOL Furosemide (Lasix) 40 mg PO DAILY-[facility] Last Admin: 05/31/17 08:02 Dose: 40 mg Glipizide (Glucotrol Xl) 10 mg PO BID-[facility] Last Admin: 05/31/17 09:29 Dose: 10 mg Glucagon (Glucagon) 1 mg IM PRN PRN PRN Reason: HYPOGLYCEMIA PROTOCOL Heparin Sodium (Porcine) (Heparin) 5,000 units SC BID [facility] Last Admin: 05/31/17 08:00 Dose: 5,000 units Hydralazine HCl (Apresoline) 10 mg SLOW IVP Q6H PRN PRN Reason: SBP > 160 [facility] Last Admin: 05/29/17 01:06 Dose: 10 mg Dextrose/Water (D5w) 1,000 mls @ 0 mls/hr IV INF PRN; As Directed PRN Reason: HYPOGLYCEMIA PROTOCOL Insulin Detemir 20 units/ (Miscellaneous Medication) 0.2 mls @ 0 mls/hr SC BID [facility] Insulin Human Lispro (Humalog) 0 units SC .MILD SLIDING SCALE PRN; Protocol PRN Reason: MILD SLIDING SCALE Last Admin: 05/31/17 05:42 Dose: 2 unit Insulin Human Lispro (Humalog) 0 units SC .BEDTIME SLIDING SC PRN; Protocol PRN Reason: BEDTIME SLIDING SCALE Last Admin: 05/30/17 21:47 Dose: 5 unit Levothyroxine Sodium (Synthroid) 25 mcg PO 0600 [facility] Last Admin: 05/31/17 05:42 Dose: 25 mcg Metformin HCl (Glucophage) 500 mg PO BID-[facility] Last Admin: 05/31/17 08:02 Dose: 500 mg Mometasone Furoate/Formoterol Fumar (Dulera 200 Mcg/5 Mcg Inhaler) 1 puff INH BID-RT [facility] Last Admin: 05/31/17 06:18 Dose: 1 puff Prednisone (Prednisone) 40 mg PO QAM-[facility] Last Admin: 05/31/17 08:01 Dose: 40 mg Sodium Chloride (Flush - Normal Saline) 10 ml IVF Q12HR [facility] Last Admin: 05/31/17 08:02 Dose: 10 ml Sodium Chloride (Flush - Normal Saline) 10 ml IVF PRN PRN PRN Reason: Saline Flush Theophylline (Theophylline Er) 600 mg PO DAILY [facility] Last Admin: 05/31/17 09:29 Dose: 600 mg
--- NOTE | 2017-05-31 18:01 | PRG ---
DATE OF SERVICE: 05/31/2017 SUBJECTIVE: This morning, she is better. She is less short of breath. She is not walking. PHYSICAL EXAMINATION: VITAL SIGNS: Blood pressure is elevated 103/68, sats are 98% on 2 liters, respirations 18, temperat ure 98. CHEST: No wheezing. CARDIAC: Normal S1 and S2. No gallops. ABDOMEN: Soft. LABORATORY DATA: Bicarb is 41 consistent with chronic respiratory acidosis. Creatinine 1.25. Whit e count 11,000, hemoglobin and hematocrit 10 and 35. IMPRESSION: 1. Acute on chronic respiratory failure. 2. Morbid obesity. 3. Sleep apnea. 4. Chronic obstructive pulmonary disease, poor compliance. 5. Renal failure. PLAN: Continue antibiotics, nebulizer treatments, BiPAP. Will notify Dr. Valerio tomorrow.
[2017-05-31] MEDS: Insulin Detemir 100 UNITS/ML 20 UNITS in Pre-Filled Syringe SC SCH (21:46)
[2017-05-31] MEDS: Acetaminophen 325 MG TAB PO PRN (23:12)
[2017-06-01 05:07] LABS: BUN (Urea Nitrogen) 38 mg/dL (9.8-20.1); Calc. Creatinine Clearance 96 mL/min (70-130); Calcium 9.3 mg/dL (7.8-10.44); Estimated GFR-MDRD 44
[2017-06-01 05:16] LABS: Anion Gap 11 mmol/L (10-20); Chloride 90 mmol/L (98-107)
[2017-06-01 05:34] LABS: Carbon Dioxide 43 mmol/L (23-31)
[2017-06-01] MEDS: Levothyroxine Sodium 25 MCG TAB PO SCH (06:05)
[2017-06-01] MEDS: Mometasone/Formoterol 120 PUFF INHALER INH SCH (06:54)
[2017-06-01 08:56] VITALS: BP 144/67; TEMP 97.7
--- NOTE | 2017-06-01 09:08 | PRG ---
DATE OF SERVICE: 06/01/2017 The patient is doing better and she wants to go home. PHYSICAL EXAMINATION: VITAL SIGNS: On exam her temperature is 99.0, pulse 82, respirations 20, O2 sat 92% on 2 liters. HEENT: Unremarkable. NECK: No JVD. LUNGS: Lungs have distant, but clear breath sounds. CARDIOVASCULAR: S1, S2 regular. ABDOMEN: Soft. EXTREMITIES: No edema. ASSESSMENT: 1. Chronic obstructive pulmonary disease with exacerbation. 2. Status post acute respiratory failure. PLAN: I think she is ready to go home. She is requesting outpatient physical therapy, which I thin k can probably be arranged. I would treat her for a total of 7 days of antibiotics between hospital and home and the same thing with her steroids. She can follow up with me in 2-3 weeks in the offic e.
[2017-06-01] MEDS: Insulin Detemir 100 UNITS/ML 20 UNITS in Pre-Filled Syringe SC SCH (09:29)
[2017-06-01] MEDS: Furosemide 40 MG TAB PO SCH (09:30)
[2017-06-01] MEDS: Cefdinir 300 MG CAP PO SCH (09:30)
[2017-06-01] MEDS: metFORMIN 500 MG TAB PO SCH (09:30)
[2017-06-01] MEDS: predniSONE 20 MG TAB PO SCH (09:30)
[2017-06-01] MEDS: Aspirin 81 mg Enteric Coated Tablet PO SCH (09:30)
[2017-06-01] MEDS: Heparin 5,000 UNITS/ML VIAL SC SCH (09:33)
[2017-06-01] MEDS: Amlodipine 10 MG TAB PO SCH (09:33)
--- NOTE | 2017-06-01 10:34 | PDOC.PN ---
- Subjective Encounter Start Date: 06/01/17 Encounter Start Time: 07:55 Subjective: breathing better - Objective MAR Reviewed: Yes Vital Signs & Weight: Vital Signs (12 hours) Temp Pulse Resp BP BP Pulse Ox 06/01/17 09:33 82 144/67 H 06/01/17 09:31 144/67 H 06/01/17 08:00 97.7 F 82 20 144/67 H 94 L 06/01/17 06:51 82 20 92 L 06/01/17 02:22 97 06/01/17 01:53 77 16 97 05/31/17 22:37 73 16 93 L Weight Weight 286 lb 9.615 oz Most Recent Monitor Data Heart Rate from ECG 93 NIBP 143/64 NIBP BP-Mean 70 Respiration from ECG 28 SpO2 85 I&O: 05/31/17 06/01/17 06/02/17 06:59 06:59 06:59 Intake Total 850 960 Balance 850 960 Result Diagrams: 05/31/17 07:35 06/01/17 04:12 Additional Labs: Accuchecks 06/01/17 05/31/17 05/31/17 06:04 20:53 16:59 POC Glucose 93 312 H 311 H 05/31/17 05/29/17 11:21 18:53 POC Glucose 175 H 440 H Phys Exam - Physical Examination HEENT: PERRLA, moist MMs Neck: no JVD, supple Respiratory: no wheezing, no rales Cardiovascular: RRR, no significant murmur Gastrointestinal: soft, non-tender, positive bowel sounds Musculoskeletal: no edema, pulses present Neurological: non-focal, moves all 4 limbs Psychiatric: A&O x 3 Dx/Plan (1) Acute respiratory failure with hypoxia Code(s): J96.01 - ACUTE RESPIRATORY FAILURE WITH HYPOXIA Status: Resolved (2) Hyperkalemia Code(s): E87.5 - HYPERKALEMIA Status: Resolved (3) COPD with exacerbation Code(s): J44.1 - CHRONIC OBSTRUCTIVE PULMONARY DISEASE W (ACUTE) EXACERBATION Status: Acute (4) DM type 2 (diabetes mellitus, type 2) Status: Chronic Qualifiers: Diabetes mellitus complication status: with hyperglycemia Diabetes mellitus exterminator helper insulin use: with exterminator helper use Qualified Code(s): E11.65 - Type 2 diabetes mellitus with hyperglycemia; Z79.4 - terminal gauger supervisor (current) use of insulin; Z79.4 - terminal gauger supervisor (current) use of insulin; Z79.4 - [facility]DC ( current) use of insulin; Z79.4 - terminal gauger supervisor (current) use of insulin (5) HTN (hypertension) Code(s): I10 - ESSENTIAL (PRIMARY) HYPERTENSION Status: Chronic Qualifiers: Hypertension type: essential hypertension Qualified Code(s): I10 - Essential (primary) hypertension (6) Dyslipidemia Code(s): E78.5 - HYPERLIPIDEMIA, UNSPECIFIED Status: Chronic (7) Obesity Code(s): E66.9 - OBESITY, UNSPECIFIED Status: Chronic Qualifiers: Body mass index: BMI 45.0-49.9 (8) Chronic anemia Code(s): D64.9 - ANEMIA, UNSPECIFIED Status: Chronic (9) Sleep apnea Code(s): G47.30 - SLEEP APNEA, UNSPECIFIED Status: Chronic - Plan CM for outpt rehab in [place] -: may dc home if above is arranged -: to f/u with in 3 weeks -: to wear cpap at night * .
--- NOTE | 2017-06-02 02:45 | DIS ---
DATE OF ADMISSION: 05/28/2017 DATE OF DISCHARGE: 06/01/2017 DISCHARGE DISPOSITION: To home with outpatient rehabilitation. PRIMARY DISCHARGE DIAGNOSES: Acute respiratory failure with hypoxia, resolved; hypokalemia, resolved; chronic obstructive pulmonary disease with exacerbation; sleep apnea. SECONDARY DISCHARGE DIAGNOSES: Chronic anemia; obesity; dyslipidemia; hypertension; diabetes mellitus, type 2. PROCEDURES DONE DURING HOSPITALIZATION: Chest x-ray done on the day of admission showed pulmonary vascular congestion. There was also initial suspicion for possible mild infiltrates in the lower lung summers. There was cardiomegaly. Blood cultures x2, no growth. Urine culture, no growth. Discharge H\T\H are 10 and 35, platelet count is 256. Initial blood gas done showed a pH of 7.24, PCO2 of 99, pO2 of 95. Blood gas bicarbonate was 41. Discharge BUN and creatinine are 38 and 1.23. Discharge serum bicarbonate is 43. Troponin x3 is negative. Initial potassium was 6.5. BNP 107. DISCHARGE MEDICATIONS: DuoNeb q.6 hours p.r.n., amlodipine with benazepril 10/ 20 mg p.o. daily, Omnicef 300 mg p.o. twice daily for another 4 days, Lasix 40 mg p.o. daily, Lantus 20 units subcutaneous q.a.m., levothyroxine 25 mcg p.o. daily, Dulera inhaler daily, prednisone tapering Dosepak starting at 10 mg, spironolactone 25 mg daily, theophylline 600 mg extended release daily, Spiriva inhaler daily, glipizide extended release 10 mg twice daily, metformin 500 mg twice daily. ALLERGIES: INFLUENZA VACCINE, IODINE and SHELLFISH. She is also allergic to STATINS. INPATIENT CONSULTS: Dr. Ochoa for Nephrology, Dr. Haas for Pulmonology. BRIEF COURSE DURING HOSPITALIZATION: The patient initially came to ER with complaints of shortness of breath. She was hypoxic on arrival and had to be placed on BiPAP. The patient had acute respiratory failure with hypercarbia and hypoxia. She had COPD exacerbation. She has had consultation with Dr. Haas for Pulmonology. The patient also had hyperkalemia with metabolic acidosis as well. She has had consultation with Dr. Ochoa for the same. The patient has had slow gentle recovery from her respiratory failure and was taken off BiPAP within 36 hours. Ms. Lewis has had some issues with her CPAP machine and is in touch with the company. She will need a metabolic panel to be done in a week. If her potassium is still high, the patient needs to discontinue her spironolactone. She was ambulating with her nasal cannula 2 liters at the time of discharge within the room. Case management consultation has been requested for outpatient rehab in the [facility]. She has been cleared by Dr. Valerio for discharge. She is otherwise hemodynamically stable and will be shortly discharged home. Please see a [id number] documentation on [facility] for the day of discharge. CLAUDIA
== END 2017-06-01 14:33 | disposition home or self-care (01) | DRG 189 ==
LOC: ERS 17:32 → CCU 20:12 → IMCU/EMU 05-29 14:36 → T4-A 05-30 14:18
PROVIDERS: ADMIT Internal Medicine; ATTEND Internal Medicine
PROC: 5A09357 Assistance with Respiratory Ventilation, Less than 24 Consecutive Hours, Continuous Positive Airway Pressure (ICD-10-PCS; principal; 2017-05-28)
DX: J96.21 Acute and chronic respiratory failure with hypoxia (principal); E87.2 Acidosis; E11.22 Type 2 diabetes mellitus with diabetic chronic kidney disease; J44.1 Chronic obstructive pulmonary disease with (acute) exacerbation; Z68.42 Body mass index [BMI] 45.0-49.9, adult; D64.9 Anemia, unspecified; E87.5 Hyperkalemia; E78.5 Hyperlipidemia, unspecified; G47.30 Sleep apnea, unspecified; J96.22 Acute and chronic respiratory failure with hypercapnia; I12.9 Hypertensive chronic kidney disease with stage 1 through stage 4 chronic kidney disease, or unspecified chronic kidney disease; N18.3 Chronic kidney disease, stage 3 (moderate); E66.01 Morbid (severe) obesity due to excess calories; I73.9 Peripheral vascular disease, unspecified; Z91.14 Patient's other noncompliance with medication regimen
CPT/HCPCS: 36415; 36416; 71010; 80048; 80053; 81001; 82553; 82805; 83880; 84484; 85025; 85379; 87040; 87086; 93005; 94640; 94660; 94664; 96365; 96375; A4216; J0360; J0456; J0696; J1644; J1650; J1815; J1940; J2930; J3475; J7050; J7506; J7620

== ENCOUNTER 2017-06-18 12:34 | Day surgery (SDC) | payer MEDICARE, BC ==
[2017-06-17 16:30] VITALS: BMI 48.0
[2017-06-18] MEDS ORDERED: Lidocaine 1% PF 5 ML VIAL ONE (16:30)
[2017-06-18] MEDS ORDERED: Propofol 200 MG/20 ML VIAL ONE (16:30)
--- NOTE | 2017-06-19 07:02 | OP ---
DATE OF PROCEDURE: 06/18/2017 PROCEDURE PERFORMED: Esophagogastroduodenoscopy and colonoscopy. PREOPERATIVE DIAGNOSES: 1. Anemia. Baseline hemoglobin is 10.6 chronically. 2. Family history of colorectal cancer. 3. Chronic obstructive pulmonary disease, home O2 dependent. 4. Morbid obesity. POSTOPERATIVE DIAGNOSES: 1. Esophagogastroduodenoscopy normal. 2. Colonoscopy notable for 2 polyps in the descending colon, removed by snare polypectomy and submi tted to Pathology. 3. Prep was extremely poor. 4. Prolapsing hemorrhoid, internal to external, with no thrombosis. RECOMMENDATIONS: 1. Repeat colonoscopy in 3 years secondary to poor prep. 2. Iron supplementation. 3. MiraLax for constipation. 4. Topical conservative therapy for hemorrhoid. This is a very large hemorrhoid, but she is a very poor candidate for surgery. I would recommend topical care, sitz bath, stool softeners. ANESTHESIA: TIVA. PROCEDURE IN DETAIL: After the patient was informed of the risks, benefits, and possible complicati ons of endoscopy including perforation, reactions to medication and aspiration, informed consent was obtained. The patient was brought to endoscopy suite where she was sedated in a gradual fashion. Once she was comfortable, a bite block was placed in the incisural orifice. The endoscope was advan abisai through the esophagus, stomach and the second and third portion of the duodenum and slowly remov ed. There was a good visualization of the mucosa. There were no masses, lesions, or arteriovenous malformations identified in the stomach. The esophagus was normal as was as the stomach, duodenum, and third portion. There was no evidence of celiac disease or folds. The scope was then jefry olivia. The patient was turned in the room. A rectal examination was performed. The endoscope was advanced through anal canal through the colon to the cecum which was identified by ileocecal valve and appen diceal orifice. There were 2 large polyps about 5-10 mm in size, removed by snare polypectomy in th e ascending colon. These were submitted to Pathology. The prep was excessively poor, 3 liters of s terile saline was used to irrigate the colon clear at lease so that no large mass could be missed. The small lesions may have not been seen even after the prep was cleaned off as much as possible. R etroflexed views in the rectum confirmed a large internal hemorrhoid. The hemorrhoid very easily pr olapsed through the rectum; it was not thrombosed. The scope was then removed. The patient tolerat ed the procedure well with no complications. Overall procedure time was an hour and a half.
== END 2017-06-19 18:15 | disposition home or self-care (01) ==
LOC: SDC 12:34
PROVIDERS: ATTEND Internal Medicine Gastroenterology
PROC: 0DBK8ZX Excision of Ascending Colon, Via Natural or Artificial Opening Endoscopic, Diagnostic (ICD-10-PCS; principal; 2017-06-18)
PROC: 0DJ08ZZ Inspection of Upper Intestinal Tract, Via Natural or Artificial Opening Endoscopic (ICD-10-PCS; 2017-06-18)
DX: K63.5 Polyp of colon (principal); D64.89 Other specified anemias; J44.9 Chronic obstructive pulmonary disease, unspecified; E66.01 Morbid (severe) obesity due to excess calories; K64.8 Other hemorrhoids; E78.00 Pure hypercholesterolemia, unspecified; F41.9 Anxiety disorder, unspecified; M19.90 Unspecified osteoarthritis, unspecified site; J45.909 Unspecified asthma, uncomplicated; E11.22 Type 2 diabetes mellitus with diabetic chronic kidney disease; I12.9 Hypertensive chronic kidney disease with stage 1 through stage 4 chronic kidney disease, or unspecified chronic kidney disease; N18.9 Chronic kidney disease, unspecified; G47.30 Sleep apnea, unspecified; E07.9 Disorder of thyroid, unspecified; Z68.42 Body mass index [BMI] 45.0-49.9, adult; Z79.4 Long term (current) use of insulin; Z79.51 Long term (current) use of inhaled steroids; Z79.899 Other long term (current) drug therapy; Z99.81 Dependence on supplemental oxygen; Z88.8 Allergy status to other drugs, medicaments and biological substances; Z91.041 Radiographic dye allergy status; Z91.013 Allergy to seafood; Z88.7 Allergy status to serum and vaccine; Z98.51 Tubal ligation status; Z98.890 Other specified postprocedural states
CPT/HCPCS: 36416; 88305; J2001; J2704

== ENCOUNTER 2018-12-18 19:59 | Inpatient (IN) | payer MEDICARE, BC ==
[2018-12-18 20:43] LABS: Actual Bicarbonate (HCO3a) 47.4 mEq/L (22-28); Analyzer IN Cardio ER; Base Excess (BEa) 18.8 mEq/L (-2.0 to +3.0); Calcium, Ionized 1.22 mmol/L (1.12-1.30); Carboxyhemoglobin (COHb) 0.2 gm% (0.0-3.0); Hemoglobin (Hb) 11.1 g/dL (12.0-16.0); Potassium - ABG Lab 4.19 mmol/L (3.70-5.30); pH, Arterial 7.38 (7.35-7.45)
[2018-12-18] MEDS ORDERED: methylPREDNISolone Sod Succ/PF 125 MG/2 ML VIAL ONE (20:45)
--- NOTE | 2018-12-18 20:53 | RAD ---
Exam: Chest one view HISTORY:Chest pain Comparison: 05/28/2017 FINDINGS: Cardiac silhouette:Cardiomegaly Pulmonary vessels: Normal Costophrenic angles: Right costophrenic angle is clear. Increased opacity in the left lung base. LUNGS: Limited evaluation of the left hemithorax may in part be due to technique. Pleural and parench ymal changes cannot be excluded. Chronic changes along parenchyma are noted. Pneumothorax: None Tracheostomy is identified Osseous abnormalities: None IMPRESSION: 1. Cardiomegaly. Possible opacification the left lung base. Evaluation is limited by technique. Quinn nued surveillance is recommended 2. Chronic changes lung parenchyma.
[2018-12-18 20:56] LABS: CO2 Tension 81.2 mmHg (35.0-45.0)
[2018-12-18 20:57] LABS: O2 Tension (PaO2) 59.6 mmHg (> 80.0); Puncture Site RRA
[2018-12-18] MEDS ORDERED: Furosemide 40 MG/4 ML VIAL ONE (21:02)
[2018-12-18] MEDS ORDERED: Nitroglycerin 2% Ointment 1 INCH/1 GM Packet ONE (21:03)
[2018-12-18 21:08] LABS: #Eosinphils 0.2 thou/uL (0.0-0.7); #Lymphocytes 1.7 thou/uL (1.20-3.40); #Neutrophils 7.5 thou/uL (1.40-6.50); %Basophils 0.3 % (0.0-1.0); %Eosinophils 1.7 % (0.0-10.0); %Monocytes 9.4 % (0.0-10.0); %Neutrophils 72.6 % (42.0-75.0); Hemoglobin 10.2 g/dL (12.0-16.0); Mean Corpuscular HGB CONC 30.9 g/dL (32.0-36.0); Mean Corpuscular Hemoglobin 27.6 pg (27.0-31.0); Mean Corpuscular Volume 89.1 fL (78.0-98.0); Platelet Count 300 thou/uL (130-400); RBC Distribution Width 13.7 % (11.5-14.5); Red Blood Cell (RBC) Count 3.72 mill/uL (4.20-5.40); White Blood Cell (WBC) Count 10.4 thou/uL (4.8-10.8)
[2018-12-18 21:35] LABS: ALT (SGPT) Less than 7 U/L (8-55); AST (SGOT) 13 U/L (5-34); Albumin 3.8 g/dL (3.4-4.8); Alkaline Phosphatase 67 U/L (40-150); BUN (Urea Nitrogen) 37 mg/dL (9.8-20.1); Bilirubin, Total 0.2 mg/dL (0.2-1.2); Calc. Creatinine Clearance 0 mL/min (70-130); Calcium 10.2 mg/dL (7.8-10.44); Estimated GFR-MDRD 44; Glucose 112 mg/dL (80-115); Protein, Total 6.8 g/dL (6.0-8.3)
[2018-12-18 21:44] LABS: Anion Gap 14 mmol/L (10-20); Chloride 88 mmol/L (98-107); Potassium 4.4 mmol/L (3.5-5.1); Sodium 140 mmol/L (136-145)
[2018-12-18 21:46] LABS: Carbon Dioxide 42 mmol/L (23-31)
[2018-12-18] MEDS ORDERED: Ondansetron ODT 4 MG TAB PO PRN (23:32)
[2018-12-18] MEDS ORDERED: Ondansetron PF 4 MG/2 ML Vial IVP PRN (23:32)
[2018-12-18] MEDS ORDERED: Dextrose 5% in Water 1,000 ML IV PRN (23:56)
[2018-12-18] MEDS ORDERED: Dextrose 50% Abboject 50 ML SYRINGE SLOW IVP PRN (23:56)
[2018-12-19] MEDS ORDERED: ALPRAZolam 0.25 MG TAB ONE (00:23)
[2018-12-19 01:08] LABS: Troponin I Less than 0.010 ng/mL (< 0.028)
--- NOTE | 2018-12-19 02:03 | HP ---
PRIMARY CARE DOCTOR: Dr. Jessica Blake. CODE STATUS: Full code. TIME OF EVALUATION: 10:40 p.m. CHIEF COMPLAINT FOR THIS PATIENT: Shortness of breath. HISTORY OF PRESENT ILLNESS: This is a 63-year-old female, obese patient with past medical history of diabetes, hyperlipidemia, hypertension, COPD status post tracheostomy. The patient needs to sleep with her BiPAP connected to the trach, came to the hospital after having a gradually worsening severe shortness of breath with no clear triggers, no alleviating factors. The patient reported that she has an oxygen generator at home and the machine was not working properly to keep the oxygen that she was needing, so they were unable to keep the saturation of the patient above 90 and basically the number that they were getting were about 60s and 70s. Symptoms were associated with chest tightness with sudden onset. REVIEW OF SYSTEMS: CONSTITUTIONAL: No fever, no chills, no generalized weakness. RESPIRATORY: Cough, shortness of breath, scant sputum production. CARDIOVASCULAR: No chest pain or palpitations. ABDOMEN: No distention, no vomiting, diarrhea or abdominal pain. 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 GENITOURINARY: No burning on urination. EXTREMITIES: Bilateral leg edema. All other systems were reviewed and negative except for the findings mentioned above. PAST MEDICAL HISTORY: As mentioned in the HPI. PAST SURGICAL HISTORY: Bladder surgery, brain surgery. FAMILY HISTORY: Reviewed and non contributory for current presentation. PSYCHIATRIC HISTORY: Includes anxiety and depression. SOCIAL HISTORY: No drug use. No smoking history. No alcohol. KNOWN ALLERGIES: Flu shot, iodine, shellfish simvastatin. REPORTED MEDICATION: 1. Levothyroxine. 2. Furosemide. 3. Tylenol with codeine #3. 4. Acetylcysteine. 5. Xanax. 6. Amlodipine. 7. Eliquis Kwik-Vial. 8. Benzonatate. 9. BuSpar. 10. Benadryl. 11. Docusate sodium. 12. Duloxetine. 13. Enulose. 14. Ferrous fumarate. 15. Glipizide. 16. Guaifenesin. 17. Hydralazine. 18. Ipratropium/albuterol. 19. Isosorbide. 20. Loratadine. 21. Melatonin. 22. Singulair. 23. Nitroglycerin. 24. Nystatin. 25. Triamcinolone. 26. Sennosides. 27. Tylenol. PHYSICAL EXAMINATION: VITAL SIGNS ON PRESENTATION: Heart rate 72, respiratory rate was 24, temperature 98.1, oxygen saturation was 94, blood pressure was 177/73. GENERAL APPEARANCE: The patient is alert, oriented, not in acute distress. HEENT: Eyes, normal conjunctivae. Moist oral mucosa. Anicteric. NECK: No JVD. The patient has a trach. It is connected to the BiPAP. RESPIRATORY: Bilateral air entry is decreased. The patient has wheezing. No rales, symmetric expansion. CARDIOVASCULAR: Normal rate, regular rhythm. No murmurs, no gallop. No edema. ABDOMEN: Soft, normal bowel sounds. MUSCULOSKELETAL: Baseline range of motion and strength. No tenderness. SKIN: Warm, intact. No pallor. No rash. No redness. Peripheral pulses are present. Capillary refill seems to be intact. NEUROLOGIC: Evidence of any new focal weakness. Baseline speech. Cranial nerves seems to be intact. PSYCHIATRIC: The patient is in good mood. No anxiety. Optimal judgment. DIAGNOSTIC STUDIES: Chest x-ray, the patient has cardiomegaly, possible opacification of the lung base, chronic changes in lung parenchyma. LABORATORY DATA: Reviewed. The patient has white count of 10.4, hemoglobin 10.2, MCV 89.1, platelet count 300. Blood gas, pH 7.38, pCO2 81, PO2 59. Sodium 140, potassium 4.4, chloride 88, carbon dioxide 42, anion gap 14, BUN 37, creatinine 1.24, in previous admission was about the same level. GFR 44, glucose 112, calcium 10.2, total bilirubin 0.2, AST 13, ALT less than 7, alkaline phosphatase 67. Troponin negative. Beta-natriuretic peptide 48.1. Serum total protein 6.8, albumin 3.8, globulin 3.0, albumin globulin ratio is 1.3. ASSESSMENT AND PLAN: The patient will be placed in the hospital with following medical problems: 1. Acute hypoxic and hypercapnic respiratory failure. The patient has a pH of 7.38, pCO2 was 81, and oxygen 59. The patient has been restarted on bilevel positive airway pressure through tracheostomy. We will continue to monitor. She seems more stable now. Saturations back to normal. We will place consultation for Dr. Valerio who follows her as outpatient. 2. Morbid obesity. The patient would benefit from weight loss. 3. Metabolic alkalosis, lactic acid compensation, chronic respiratory acidosis. No need for any acute intervention. We will monitor and treat underlying condition. 4. Chronic kidney disease. The patient has a glomerular filtration rate of 54, which is the ASA criteria for stage 3 CKD. We will monitor kidney function, we will treat accordingly. 5. Normocytic anemia likely secondary to chronic kidney disease. No need for any acute intervention at this point, we will monitor. 6. Hyperlipidemia, low-cholesterol diet is advised, reconcile home medications. 7. Uncontrolled hypertension, systolic 177 on presentation. Reconcile home medications, the patient in less respiratory distress now that might help control of blood pressure too. 8. History of chronic obstructive pulmonary disease. The patient has chronic hypercapnic and acute hypoxic respiratory failure. The patient is on bilevel positive airway pressure. We will also add DuoNebs and steroids, and Pulmonary is being consulted. 9. Deep venous thrombosis prophylaxis. Reportedly, patient had a history of deep venous thrombosis and had been taking blood thinners, medications not updated yet in the system. 10. Controlled diabetes. We will place the patient on sliding scale, especially those who are giving her steroids. Job ID: [id number] [id number]
[2018-12-19 03:24] LABS: #Lymphocytes 0.9 thou/uL (1.20-3.40); #Monocytes 0.1 thou/uL (0.11-0.59); %Basophils 0.3 % (0.0-1.0); %Eosinophils 0.2 % (0.0-10.0); %Lymphocytes 7.8 % (21.0-51.0); %Neutrophils 90.7 % (42.0-75.0); Hemoglobin 10.2 g/dL (12.0-16.0); Mean Corpuscular HGB CONC 30.8 g/dL (32.0-36.0); Mean Corpuscular Hemoglobin 27.5 pg (27.0-31.0); Mean Corpuscular Volume 89.2 fL (78.0-98.0); Mean Platelet Volume 6.9 fL (7.4-10.4); Platelet Count 292 thou/uL (130-400); RBC Distribution Width 13.7 % (11.5-14.5); Red Blood Cell (RBC) Count 3.71 mill/uL (4.20-5.40); White Blood Cell (WBC) Count 11.1 thou/uL (4.8-10.8)
[2018-12-19 03:46] LABS: BUN (Urea Nitrogen) 36 mg/dL (9.8-20.1); Calc. Creatinine Clearance 0 mL/min (70-130); Calcium 10.6 mg/dL (7.8-10.44); Estimated GFR-MDRD 44; Glucose 207 mg/dL (80-115)
[2018-12-19 03:49] LABS: Troponin I Less than 0.010 ng/mL (< 0.028)
[2018-12-19 03:55] LABS: Anion Gap 19 mmol/L (10-20); Carbon Dioxide 35 mmol/L (23-31); Chloride 88 mmol/L (98-107); Sodium 137 mmol/L (136-145)
[2018-12-19] MEDS ORDERED: predniSONE 20 MG TAB PO SCH (08:00)
[2018-12-19] MEDS ORDERED: Enoxaparin Sodium 40 MG/0.4 ML SYRINGE ONE (08:35)
[2018-12-19] MEDS ORDERED: predniSONE 20 MG TAB ONE (08:35)
[2018-12-19] MEDS: Enoxaparin Sodium 40 MG/0.4 ML SYRINGE SC SCH (09:03)
[2018-12-19] MEDS ORDERED: HumaLOG 300 UNITS/3 ML VIAL ONE (09:14)
[2018-12-19] MEDS: HumaLOG 300 UNITS/3 ML VIAL SC PRN ×2 (09:18→17:12)
--- NOTE | 2018-12-19 14:31 | PDOC.PN ---
- Subjective Encounter Start Date: 12/19/18 Encounter Start Time: 12:30 Subjective: breathing better -: is slowly getting weaned off bipap -: has chronic trach - Objective Resuscitation Status - Order Detail: 12/18/18 23:32 Resuscitation Status Routine Resuscitation Status: FULL: Full Resuscitation MAR Reviewed: Yes Vital Signs & Weight: Vital Signs (12 hours) Pulse Resp Pulse Ox 12/19/18 14:00 82 16 96 12/19/18 12:02 95 12/19/18 09:55 79 24 H 96 12/19/18 09:54 75 16 96 12/19/18 06:58 65 12 96 12/19/18 06:57 67 18 96 12/19/18 04:57 76 22 H 95 12/19/18 02:58 67 15 95 12/19/18 02:49 67 15 95 Result Diagrams: 12/19/18 03:12 12/19/18 03:12 Additional Labs: Accuchecks 12/19/18 12/19/18 12:53 08:51 POC Glucose 367 H 286 H Phys Exam - Physical Examination HEENT: PERRLA, moist MMs Neck: no JVD, supple trach-shiley #6 Respiratory: no wheezing, no rales rhonchi+ Cardiovascular: RRR, no significant murmur Gastrointestinal: soft, non-tender, positive bowel sounds Musculoskeletal: no edema, pulses present Neurological: non-focal, moves all 4 limbs Psychiatric: normal affect, A&O x 3 Dx/Plan (1) Acute on chronic respiratory failure with hypercapnia Code(s): J96.22 - ACUTE AND CHRONIC RESPIRATORY FAILURE WITH HYPERCAPNIA Status: Acute (2) COPD with exacerbation Code(s): J44.1 - CHRONIC OBSTRUCTIVE PULMONARY DISEASE W (ACUTE) EXACERBATION Status: Acute (3) Chronic anemia Code(s): D64.9 - ANEMIA, UNSPECIFIED Status: Chronic (4) DM type 2 (diabetes mellitus, type 2) Status: Chronic Qualifiers: Diabetes mellitus halfway insulin use: with terminal superintendent use Diabetes mellitus complication status: with unspecified complications Qualified Code(s) : E11.8 - Type 2 diabetes mellitus with unspecified complications; Z79.4 - prison (current) use of insulin (5) Dyslipidemia Code(s): E78.5 - HYPERLIPIDEMIA, UNSPECIFIED Status: Chronic (6) HTN (hypertension) Code(s): I10 - ESSENTIAL (PRIMARY) HYPERTENSION Status: Chronic Qualifiers: (7) Obesity Code(s): E66.9 - OBESITY, UNSPECIFIED Status: Chronic - Plan on nebs, prednisone -: was following with before moving to [place] a yr back -: says she has moved back to this area now -: will obtain pulm consultation -: continue home meds, mobilize as tolerated * . May tx to telemetry for tonight then medical/home if stable. Review of Systems - Medications/Allergies Allergies/Adverse Reactions: Allergies Allergy/AdvReac Type Severity Reaction Status Date / Time influenza virus vacc Allergy Verified 06/17/17 16:30 trivalent, spl [From Fluzone] iodine Allergy Verified 06/17/17 16:30 shellfish derived Allergy Verified 06/17/17 16:30 Statins Allergy Uncoded 06/17/17 16:30 Medications: Current Medications Acetaminophen (Tylenol) 650 mg PO Q4H PRN PRN Reason: Headache/Fever/Mild Pain (1-3) Albuterol/Ipratropium (Duoneb) 3 ml NEB Q2H PRN PRN Reason: SOB &/or Wheezing Last Admin: 12/19/18 04:57 Dose: 3 ml Albuterol/Ipratropium (Duoneb) 3 ml NEB [id number] [facility] Last Admin: 12/19/18 14:00 Dose: 3 ml Dextrose/Water (Dextrose 50%) 25 gm SLOW IVP PRN PRN PRN Reason: Hypoglycemia Enoxaparin Sodium (Lovenox) 40 mg SC 0900 [facility] Last Admin: 12/19/18 09:03 Dose: 40 mg Glucagon (Glucagon) 1 mg IM PRN PRN PRN Reason: Hypoglycemia Dextrose/Water (D5w) 1,000 mls @ 0 mls/hr IV .Q0M PRN PRN Reason: Hypoglycemia Insulin Human Lispro (Humalog) 0 units SC .MILD SLIDING SCALE PRN PRN Reason: Mild Correctional Scale Last Admin: 12/19/18 09:18 Dose: 4 unit Ondansetron HCl (Zofran Odt) 4 mg PO Q6H PRN PRN Reason: Nausea/Vomiting Ondansetron HCl (Zofran) 4 mg IVP Q6H PRN PRN Reason: Nausea/Vomiting Prednisone (Prednisone) 40 mg PO QAM-WM [facility] Last Admin: 12/19/18 09:03 Dose: 40 mg
[2018-12-19] MEDS ORDERED: HumaLOG 300 UNITS/3 ML VIAL SC SCH (15:00)
[2018-12-19] MEDS ORDERED: metFORMIN 500 MG TAB PO SCH (17:00)
[2018-12-19] MEDS ORDERED: Insulin Glargine 20 UNITS in Pre-Filled Syringe SC SCH (17:45)
[2018-12-19] MEDS ORDERED: Docusate 100 MG CAP PO PRN (21:08)
[2018-12-19] MEDS ORDERED: diphenhydrAMINE 25 MG CAP PO PRN (21:08)
[2018-12-19] MEDS ORDERED: hydrALAZINE 20 MG/ML VIAL SLOW IVP SCH (21:45)
[2018-12-19] MEDS ORDERED: Isosorbide Dinitrate 20 MG TAB PO SCH (21:45)
[2018-12-19] MEDS: ALPRAZolam 0.25 MG TAB PO PRN (22:03)
[2018-12-19] MEDS: Benzonatate 100 MG CAP PO PRN (22:03)
[2018-12-20] MEDS ORDERED: Dextromethorphan Polistirex 30 MG/5 ML (89 ML BOTTLE) PO SCH (01:30)
[2018-12-20] MEDS: Acetaminophen 325 MG TAB PO PRN ×4 (01:36→21:39)
[2018-12-20] MEDS ORDERED: cloNIDine 0.1 MG TAB PO PRN (03:56)
[2018-12-20] MEDS: Levothyroxine Sodium 25 MCG TAB PO SCH (06:30)
[2018-12-20] MEDS: Mometasone/Formoterol 120 PUFF INHALER INH SCH (07:48)
[2018-12-20] MEDS ORDERED: predniSONE 5 MG TAB PO SCH (08:00)
[2018-12-20 08:16] LABS: #Lymphocytes 1.8 thou/uL (1.20-3.40); #Monocytes 0.7 thou/uL (0.11-0.59); #Neutrophils 5.5 thou/uL (1.40-6.50); %Basophils 0.5 % (0.0-1.0); %Eosinophils 0.5 % (0.0-10.0); %Lymphocytes 22.2 % (21.0-51.0); %Monocytes 8.6 % (0.0-10.0); %Neutrophils 68.2 % (42.0-75.0); Hemoglobin 9.4 g/dL (12.0-16.0); Mean Corpuscular HGB CONC 31.5 g/dL (32.0-36.0); Mean Corpuscular Hemoglobin 27.7 pg (27.0-31.0); Mean Corpuscular Volume 87.9 fL (78.0-98.0); Mean Platelet Volume 6.8 fL (7.4-10.4); Platelet Count 244 thou/uL (130-400); RBC Distribution Width 13.6 % (11.5-14.5)
[2018-12-20 08:25] LABS: BUN (Urea Nitrogen) 47 mg/dL (9.8-20.1); Calc. Creatinine Clearance 0 mL/min (70-130); Estimated GFR-MDRD 40; Glucose 179 mg/dL (80-115)
[2018-12-20 08:37] LABS: Anion Gap 13 mmol/L (10-20); Carbon Dioxide 40 mmol/L (23-31); Chloride 87 mmol/L (98-107); Potassium 3.7 mmol/L (3.5-5.1); Sodium 136 mmol/L (136-145)
[2018-12-20] MEDS: Amlodipine 10 MG TAB PO SCH (08:43)
[2018-12-20] MEDS: DULoxetine 30 MG CAP PO SCH (08:44)
[2018-12-20] MEDS: busPIRone HCl 5 MG TAB PO SCH ×2 (08:44→21:40)
[2018-12-20] MEDS: Enoxaparin Sodium 40 MG/0.4 ML SYRINGE SC SCH (08:45)
[2018-12-20] MEDS: hydrALAZINE 25 MG TAB PO SCH ×3 (08:45→21:40)
[2018-12-20] MEDS: NIFEdipine XL 60 MG TAB PO SCH (08:46)
[2018-12-20] MEDS: Isosorbide Dinitrate 20 MG TAB PO SCH ×2 (08:46→21:40)
[2018-12-20] MEDS ORDERED: Furosemide 40 MG TAB PO SCH (09:00)
[2018-12-20] MEDS ORDERED: Insulin Glargine 20 UNITS in Pre-Filled Syringe SC SCH (09:00)
[2018-12-20] MEDS ORDERED: Amlodipine 10 MG TAB PO SCH (09:00)
[2018-12-20] MEDS ORDERED: Non-Formulary Item 1 EACH (Amlodipine Besylate/Benazepril [Amlodipine Besylate/Benazepril PO SCH (09:00)
[2018-12-20] MEDS ORDERED: Non-Formulary Item 1 EACH (Tiotropium Bromide [Spiriva Respimat] 2 INH) IH SCH (09:00)
[2018-12-20] MEDS ORDERED: Non-Formulary Item 1 EACH (Insulin Glargine,Hum.Rec.Anlog [Lantus Solostar] 20 UNIT) SQ SCH (09:00)
[2018-12-20] MEDS: Benzonatate 100 MG CAP PO PRN ×2 (10:01→21:39)
[2018-12-20] MEDS: Ferrous Fumarate 324 MG TAB PO SCH (10:01)
[2018-12-20] MEDS: HumaLOG 300 UNITS/3 ML VIAL SC PRN (11:38)
--- NOTE | 2018-12-20 13:08 | PDOC.PN ---
- Subjective Encounter Start Date: 12/20/18 Encounter Start Time: 08:45 Subjective: awake, slept well last night -: no sob, is communicating well this morning - Objective Resuscitation Status - Order Detail: 12/18/18 23:32 Resuscitation Status Routine Resuscitation Status: FULL: Full Resuscitation MAR Reviewed: Yes Vital Signs & Weight: Vital Signs (12 hours) Temp Pulse Resp BP BP Pulse Ox 12/20/18 11:31 98.2 F 62 20 137/65 93 L 12/20/18 10:35 79 16 95 12/20/18 08:40 98.4 F 66 18 182/80 H 93 L 12/20/18 03:59 181/84 H 12/20/18 03:53 97.8 F 56 L 16 181/84 H 96 12/20/18 03:34 93 L Result Diagrams: 12/20/18 08:01 12/20/18 08:01 Additional Labs: Accuchecks 12/20/18 12/20/18 12/19/18 10:46 05:34 20:32 POC Glucose 248 H 247 H 384 H 12/19/18 12/19/18 16:47 12:53 POC Glucose 385 H 367 H Phys Exam - Physical Examination HEENT: PERRLA, moist MMs Neck: no JVD trach+ Respiratory: no wheezing, no rales Cardiovascular: RRR, no significant murmur Gastrointestinal: soft, non-tender, positive bowel sounds Musculoskeletal: no edema, pulses present Neurological: non-focal, moves all 4 limbs Psychiatric: normal affect, A&O x 3 Dx/Plan (1) Acute on chronic respiratory failure with hypercapnia Code(s): J96.22 - ACUTE AND CHRONIC RESPIRATORY FAILURE WITH HYPERCAPNIA Status: Acute Comment: resolved (2) COPD with exacerbation Code(s): J44.1 - CHRONIC OBSTRUCTIVE PULMONARY DISEASE W (ACUTE) EXACERBATION Status: Acute (3) Chronic anemia Code(s): D64.9 - ANEMIA, UNSPECIFIED Status: Chronic (4) DM type 2 (diabetes mellitus, type 2) Status: Chronic Qualifiers: Diabetes mellitus manager intermediate insulin use: with longterm use Diabetes mellitus complication status: with unspecified complications Qualified Code(s) : E11.8 - Type 2 diabetes mellitus with unspecified complications; Z79.4 - manager intermediate (current) use of insulin (5) Dyslipidemia Code(s): E78.5 - HYPERLIPIDEMIA, UNSPECIFIED Status: Chronic (6) HTN (hypertension) Code(s): I10 - ESSENTIAL (PRIMARY) HYPERTENSION Status: Chronic Qualifiers: (7) Obesity Code(s): E66.9 - OBESITY, UNSPECIFIED Status: Chronic Qualifiers: Obesity type: unspecified obesity type Serious obesity comorbidity presence : with serious comorbidity - Plan is on nightly cpap -: dc lasix, is on acetozolamide(anya, hco3 is 40) -: nebs, prednisone, home meds -: CM for help with placement -: mobilize as tolerated, oob to chair * . Review of Systems - Medications/Allergies Allergies/Adverse Reactions: Allergies Allergy/AdvReac Type Severity Reaction Status Date / Time influenza virus vacc Allergy Verified 06/17/17 16:30 trivalent, spl [From Fluzone] iodine Allergy Verified 06/17/17 16:30 shellfish derived Allergy Verified 06/17/17 16:30 Statins Allergy Uncoded 06/17/17 16:30 Medications: Current Medications Acetaminophen (Tylenol) 650 mg PO Q4H PRN PRN Reason: Headache/Fever/Mild Pain (1-3) Last Admin: 12/20/18 11:38 Dose: 650 mg Acetazolamide (Diamox) 250 mg PO BID [facility] Albuterol/Ipratropium (Duoneb) 3 ml NEB Q2H PRN PRN Reason: SOB &/or Wheezing Last Admin: 12/19/18 04:57 Dose: 3 ml Albuterol/Ipratropium (Duoneb) 3 ml NEB [id number] [facility] Last Admin: 12/20/18 10:35 Dose: 3 ml Alprazolam (Xanax) 0.25 mg PO HSPRN PRN PRN Reason: Insomnia Last Admin: 12/19/18 22:03 Dose: 0.25 mg Amlodipine Besylate (Norvasc) 10 mg PO DAILY [facility] Last Admin: 12/20/18 08:43 Dose: 10 mg Benazepril HCl (Lotensin) 20 mg PO QAM [facility] Last Admin: 12/20/18 08:43 Dose: 20 mg Benzonatate (Tessalon) 200 mg PO Q8H PRN PRN Reason: Cough Last Admin: 12/20/18 10:01 Dose: 200 mg Buspirone HCl (Buspar) 5 mg PO BID [facility] Last Admin: 12/20/18 08:44 Dose: Not Given Clonidine (Catapres) 0.1 mg PO Q4H PRN PRN Reason: SBP > 180 Last Admin: 12/20/18 03:59 Dose: 0.1 mg Dextrose/Water (Dextrose 50%) 25 gm SLOW IVP PRN PRN PRN Reason: Hypoglycemia Diphenhydramine HCl (Benadryl) 25 mg PO Q8H PRN PRN Reason: Allergies Docusate Sodium (Colace) 100 mg PO BIDPRN PRN PRN Reason: Constipation Duloxetine HCl (Cymbalta) 30 mg PO DAILY [facility] Last Admin: 12/20/18 08:44 Dose: 30 mg Enoxaparin Sodium (Lovenox) 40 mg SC 0900 [facility] Last Admin: 12/20/18 08:45 Dose: 40 mg Ferrous Fumarate (Hemocyte) 324 mg PO QA-[facility] Last Admin: 12/20/18 10:01 Dose: 324 mg Glipizide (Glucotrol Xl) 10 mg PO BID-[facility] Last Admin: 12/20/18 08:42 Dose: 10 mg Glucagon (Glucagon) 1 mg IM PRN PRN PRN Reason: Hypoglycemia Hydralazine HCl (Apresoline) 25 mg PO TID [facility] Last Admin: 12/20/18 08:45 Dose: 25 mg Dextrose/Water (D5w) 1,000 mls @ 0 mls/hr IV .Q0M PRN PRN Reason: Hypoglycemia Insulin Glargine 20 units/ (Miscellaneous Medication) 0.2 mls @ 0 mls/hr SC [facility] Last Admin: 12/20/18 08:45 Dose: 0.2 mls Insulin Human Lispro (Humalog) 0 units SC .MILD SLIDING SCALE PRN PRN Reason: Mild Correctional Scale Last Admin: 12/20/18 11:38 Dose: 3 unit Isosorbide Dinitrate (Isordil) 20 mg PO BID [facility] Last Admin: 12/20/18 08:46 Dose: 20 mg Levothyroxine Sodium (Synthroid) 25 mcg PO 0600 [facility] Last Admin: 12/20/18 06:30 Dose: 25 mcg Melatonin (Melatonin) 3 mg PO [facility] Mometasone Furoate/Formoterol Fumar (Dulera 200 Mcg/5 Mcg Inhaler) 1 puff INH DAILY-RT [facility] Last Admin: 12/20/18 07:48 Dose: Not Given Montelukast Sodium (Singulair) 10 mg PO [facility] Nifedipine (Procardia Xl) [facility] Last Admin: 12/20/18 08:46 Dose: 60 mg Ondansetron HCl (Zofran Odt) 4 mg PO Q6H PRN PRN Reason: Nausea/Vomiting Ondansetron HCl (Zofran) 4 mg IVP Q6H PRN PRN Reason: Nausea/Vomiting Prednisone (Prednisone) 5 mg PO QA-[facility] Last Admin: 12/20/18 08:43 Dose: 5 mg Sodium Chloride (Flush - Normal Saline) 10 ml IVF Q12HR [facility] Last Admin: 12/20/18 08:46 Dose: 10 ml Sodium Chloride (Flush - Normal Saline) 10 ml IVF PRN PRN PRN Reason: Saline Flush Theophylline (Theophylline Er) 600 mg PO [facility] Last Admin: 12/20/18 08:47 Dose: Not Given
--- NOTE | 2018-12-20 14:28 | CON ---
DATE OF CONSULTATION: 12/20/2018 CONSULTING PHYSICIAN: Raúl Jimenez MD REASON FOR CONSULTATION: Pulmonary management. The following encompassed 70 minutes time, of that time, greater than 50% spent with the patient and/or in the patient's unit in the hospital. HISTORY OF PRESENT ILLNESS: Ms. Lewis is a 63-year-old female, who has a history of severe COPD and sleep apnea. She was initially hospitalized at [facility] back in April. She developed respiratory failure. She was eventually sent to an LTAC in the [facility] because her son lives down there. She subsequently spent the better part of 7 months in out of acute care and rehabilitative hospitals. Because of continued respiratory failure, she necessitated tracheostomy placement. She cannot be weaned fully off the ventilator and has been kept on Trilogy ventilator at night through a Shiley 6.0 cuffed trach. She tells me that she was just discharged to home on Thursday. She made it exactly one night at home before coming back to the hospital for continued hypoxemia. She said she was only approved for oxygen at 5 L through a trach collar at home and that is not enough to sustain her oxygenation needs. She is not having any cough or congestion at the current time. PAST MEDICAL HISTORY: 1. Severe COPD. 2. Asthma. 3. Diabetes mellitus type 2. 4. Hypertension. 5. Hyperlipidemia. 6. Depression. PAST SURGICAL HISTORY: Tracheostomy placement. FAMILY MEDICAL HISTORY: Remarkable for congestive heart failure, hypertension, and stroke. ALLERGIES: IV DYE, CONTRAST, LOVASTATIN, SHELLFISH, INFLUENZA TRIVALENT VACCINE. SOCIAL HISTORY: Lifetime nonsmoker. Does not consume alcohol. Lives at home with her . MEDICATIONS: Prior to admission: 1. Acetaminophen. 2. Mucomyst. 3. Nystatin. 4. Triamcinolone cream. 5. Tessalon Perles. 6. Diphenhydramine. 7. Hydralazine. 8. Guaifenesin. 9. . 10. Codeine. 11. Xanax. 12. BuSpar. 13. Lantus insulin. 14. Dulcolax. 15. Amlodipine. 16. Lactulose. 17. Colace. 18. Cymbalta. 19. DuoNeb. 20. Lasix. 21. Iron fumarate. 22. Nitrostat. 23. Singulair. 24. Melatonin. 25. Claritin. 26. . 27. Senokot. 28. Levothyroxine. 29. Glipizide. REVIEW OF SYSTEMS: A 12-point review of systems is otherwise negative. PHYSICAL EXAMINATION: VITAL SIGNS: Temperature 98.4, pulse 66, respirations 18, O2 saturation 89% on 5 L trach collar, blood pressure 182/80. GENERAL: She is an obese female. She does not have a weight listed on the chart. HEENT: Unremarkable. NECK: Has midline trach in place, which looks well cared for. LUNGS: Diminished breath sounds throughout. CARDIOVASCULAR: S1 and S2. Regular. ABDOMEN: Soft, nontender. EXTREMITIES: No clubbing or cyanosis. She has trace edema in her ankle region. IMAGING STUDIES: Chest x-ray shows cardiomegaly, tracheostomy midline. No acute infiltrates. LABORATORY DATA: White blood cell count 8, hematocrit 29.9, and platelet count 244. PH 7.38, pCO2 of 81, PO2 of 60. Sodium 136, potassium 3.7, chloride 87, CO2 of 40, BUN 47, creatinine 1.3, glucose 179. ASSESSMENT: 1. Chronic hypoxic and hypercapnic respiratory failure. 2. Chronic indwelling tracheostomy. 3. Failure to thrive at home. PLAN: Basically, this is a placement issue. This patient is not going to be able to take care of herself at home with the current interventions. I do not see anyway that she is potentially weanable from the tracheostomy, so we need to look at a usp that can take care of tracheostomies and provide her with the means of using the Trilogy ventilator at night. Basically, we need case management to figure this out for us. Job ID: [id number]
[2018-12-20] MEDS: guaiFENesin ER 600 MG TAB PO PRN (17:40)
[2018-12-20] MEDS: Melatonin 3 MG TAB PO SCH (21:39)
[2018-12-20] MEDS: ALPRAZolam 0.25 MG TAB PO PRN (21:39)
[2018-12-20] MEDS: Montelukast Sodium 10 mg Tablet PO SCH (21:39)
[2018-12-20] MEDS: AcetaZOLAMIDE 250 MG TAB PO SCH (21:40)
[2018-12-21] MEDS: Levothyroxine Sodium 25 MCG TAB PO SCH (06:07)
[2018-12-21 06:59] LABS: BUN (Urea Nitrogen) 48 mg/dL (9.8-20.1); Calc. Creatinine Clearance 0 mL/min (70-130); Calcium 9.8 mg/dL (7.8-10.44); Estimated GFR-MDRD 43
[2018-12-21 07:02] LABS: Glucose 49 mg/dL (80-115)
[2018-12-21 07:07] LABS: Anion Gap 13 mmol/L (10-20); Chloride 89 mmol/L (98-107); Potassium 3.5 mmol/L (3.5-5.1); Sodium 140 mmol/L (136-145)
[2018-12-21 07:13] LABS: Carbon Dioxide 42 mmol/L (23-31)
[2018-12-21] MEDS: Mometasone/Formoterol 120 PUFF INHALER INH SCH (07:52)
[2018-12-21] MEDS: Ferrous Fumarate 324 MG TAB PO SCH (08:48)
[2018-12-21] MEDS: AcetaZOLAMIDE 250 MG TAB PO SCH ×2 (08:48→20:10)
[2018-12-21] MEDS: busPIRone HCl 5 MG TAB PO SCH ×2 (08:49→20:15)
[2018-12-21] MEDS: Amlodipine 10 MG TAB PO SCH (08:49)
[2018-12-21] MEDS: hydrALAZINE 25 MG TAB PO SCH ×3 (08:50→20:11)
[2018-12-21] MEDS: Enoxaparin Sodium 40 MG/0.4 ML SYRINGE SC SCH (08:50)
[2018-12-21] MEDS: Isosorbide Dinitrate 20 MG TAB PO SCH ×2 (08:50→20:11)
[2018-12-21] MEDS: NIFEdipine XL 60 MG TAB PO SCH (08:50)
[2018-12-21] MEDS: DULoxetine 30 MG CAP PO SCH (08:50)
[2018-12-21] MEDS: guaiFENesin ER 600 MG TAB PO PRN (08:56)
[2018-12-21] MEDS: Acetaminophen 325 MG TAB PO PRN ×2 (09:00→20:11)
--- NOTE | 2018-12-21 10:00 | PRG ---
DATE OF SERVICE: 12/21/2018 SUBJECTIVE: The patient is sitting up in a chair. She is in no distress. She says her breathing is about the same. OBJECTIVE: VITAL SIGNS: Temperature 98.0, pulse 88, respirations 20, O2 saturation 92% on 8 L, and blood pressure 198/88. HEENT: Unremarkable. NECK: Trach in good position. LUNGS: Clear breath sounds. CARDIAC: S1 and S2. Regular. ABDOMEN: Soft, obese, and nontender. EXTREMITIES: Decreased edema. LABORATORY DATA: Sodium 140, potassium 3.5, chloride 89, CO2 of 42, BUN 48, creatinine 1.2, and glucose was 49. ASSESSMENT: 1. Chronic hypoxic and hypercapnic respiratory failure. 2. Chronic indwelling tracheostomy. 3. Failure to thrive at home. PLAN: The patient's limitation is going to be flow requirements for oxygen through her tracheostomy. She probably needs 10 L of flow and I doubt this could be provided anywhere except a medical facility such as care home or chronic ventilator facility. I have reviewed her medications and agree with current treatment. She will continue on acetazolamide for the next several days and maybe indefinitely depending on how she does with that. I will follow with you. Job ID: [id number]
[2018-12-21] MEDS: Benzonatate 100 MG CAP PO PRN ×2 (11:20→20:11)
--- NOTE | 2018-12-21 11:58 | PDOC.PN ---
- Subjective Encounter Start Date: 12/21/18 Encounter Start Time: 08:30 Subjective: feels better, says she is eating her usual amount -: no nausea or abd pain, at bedside -: breathing is better, has her trilogy vent at bedside - Objective Resuscitation Status - Order Detail: 12/18/18 23:32 Resuscitation Status Routine Resuscitation Status: FULL: Full Resuscitation MAR Reviewed: Yes Vital Signs & Weight: Vital Signs (12 hours) Temp Pulse Resp BP BP Pulse Ox 12/21/18 11:22 98 F 74 20 167/74 H 94 L 12/21/18 10:34 68 16 94 L 12/21/18 10:25 135/78 12/21/18 08:45 20 92 L 12/21/18 08:40 98 F 88 22 H 198/88 H 88 L 12/21/18 08:00 92 L 12/21/18 07:00 52 L 16 98 12/21/18 04:40 98.3 F 52 L 20 115/58 L 95 12/21/18 02:18 16 I&O: 12/20/18 12/21/18 12/22/18 06:59 06:59 06:59 Intake Total 1290 Output Total 2475 Balance -1185 Result Diagrams: 12/20/18 08:01 12/21/18 05:40 Additional Labs: Accuchecks 12/21/18 12/21/18 12/21/18 11:02 06:32 05:56 POC Glucose 128 H 87 61 L 12/20/18 12/20/18 20:29 17:12 POC Glucose 189 H 183 H Phys Exam - Physical Examination HEENT: PERRLA, moist MMs Neck: no JVD trach+ Respiratory: no wheezing, no rales Cardiovascular: RRR, no significant murmur Gastrointestinal: soft, non-tender, positive bowel sounds Musculoskeletal: no edema, pulses present Neurological: non-focal, moves all 4 limbs Psychiatric: normal affect, A&O x 3 Dx/Plan (1) Acute on chronic respiratory failure with hypercapnia Code(s): J96.22 - ACUTE AND CHRONIC RESPIRATORY FAILURE WITH HYPERCAPNIA Status: Acute Comment: resolved (2) COPD with exacerbation Code(s): J44.1 - CHRONIC OBSTRUCTIVE PULMONARY DISEASE W (ACUTE) EXACERBATION Status: Resolved (3) Chronic anemia Code(s): D64.9 - ANEMIA, UNSPECIFIED Status: Chronic (4) DM type 2 (diabetes mellitus, type 2) Status: Chronic Qualifiers: Diabetes mellitus terminal makeup operator insulin use: with terminal makeup operator use Diabetes mellitus complication status: with unspecified complications Qualified Code(s) : E11.8 - Type 2 diabetes mellitus with unspecified complications; Z79.4 - exterminator (current) use of insulin (5) Dyslipidemia Code(s): E78.5 - HYPERLIPIDEMIA, UNSPECIFIED Status: Chronic (6) HTN (hypertension) Code(s): I10 - ESSENTIAL (PRIMARY) HYPERTENSION Status: Chronic Qualifiers: (7) Obesity Code(s): E66.9 - OBESITY, UNSPECIFIED Status: Chronic Qualifiers: Obesity type: unspecified obesity type Serious obesity comorbidity presence : with serious comorbidity - Plan hemostable, d/w pt and at bedside -: december tx to med floor -: awaiting placement -: hold glipizide and lantus for now until fingerstick climbs to 200mg/dl -: continue nebs, prednisone taper, home meds * . Review of Systems - Medications/Allergies Allergies/Adverse Reactions: Allergies Allergy/AdvReac Type Severity Reaction Status Date / Time influenza virus vacc Allergy Verified 12/21/18 01:58 trivalent, spl [From Fluzone] iodine Allergy Verified 12/21/18 01:58 morphine Allergy Verified 12/21/18 01:58 shellfish derived Allergy Verified 12/21/18 01:58 Statins Allergy Uncoded 06/17/17 16:30 Medications: Current Medications Acetaminophen (Tylenol) 650 mg PO Q4H PRN PRN Reason: Headache/Fever/Mild Pain (1-3) Last Admin: 12/21/18 09:00 Dose: 650 mg Acetazolamide (Diamox) 250 mg PO BID [facility] Last Admin: 12/21/18 08:48 Dose: 250 mg Albuterol/Ipratropium (Duoneb) 3 ml NEB Q2H PRN PRN Reason: SOB &/or Wheezing Last Admin: 12/19/18 04:57 Dose: 3 ml Albuterol/Ipratropium (Duoneb) 3 ml NEB [id number] [facility] Last Admin: 12/21/18 10:34 Dose: 3 ml Alprazolam (Xanax) 0.25 mg PO HSPRN PRN PRN Reason: Insomnia Last Admin: 12/20/18 21:39 Dose: 0.25 mg Amlodipine Besylate (Norvasc) 10 mg PO DAILY [facility] Last Admin: 12/21/18 08:49 Dose: 10 mg Benazepril HCl (Lotensin) 20 mg PO QAM [facility] Last Admin: 12/21/18 08:49 Dose: 20 mg Benzonatate (Tessalon) 200 mg PO Q8H PRN PRN Reason: Cough Last Admin: 12/21/18 11:20 Dose: 200 mg Buspirone HCl (Buspar) 5 mg PO BID [facility] Last Admin: 12/21/18 08:49 Dose: Not Given Clonidine (Catapres) 0.1 mg PO Q4H PRN PRN Reason: SBP > 180 Last Admin: 12/20/18 03:59 Dose: 0.1 mg Dextrose/Water (Dextrose 50%) 25 gm SLOW IVP PRN PRN PRN Reason: Hypoglycemia Diphenhydramine HCl (Benadryl) 25 mg PO Q8H PRN PRN Reason: Allergies Docusate Sodium (Colace) 100 mg PO BIDPRN PRN PRN Reason: Constipation Duloxetine HCl (Cymbalta) 30 mg PO DAILY [facility] Last Admin: 12/21/18 08:50 Dose: 30 mg Enoxaparin Sodium (Lovenox) 40 mg SC 0900 [facility] Last Admin: 12/21/18 08:50 Dose: 40 mg Ferrous Fumarate (Hemocyte) 324 mg PO QA-[facility] Last Admin: 12/21/18 08:48 Dose: 324 mg Glucagon (Glucagon) 1 mg IM PRN PRN PRN Reason: Hypoglycemia Guaifenesin (Mucinex) 600 mg PO BID PRN PRN Reason: Cough Last Admin: 12/21/18 08:56 Dose: 600 mg Hydralazine HCl (Apresoline) 25 mg PO TID [facility] Last Admin: 12/21/18 08:50 Dose: 25 mg Dextrose/Water (D5w) 1,000 mls @ 0 mls/hr IV .Q0M PRN PRN Reason: Hypoglycemia Insulin Human Lispro (Humalog) 0 units SC .MILD SLIDING SCALE PRN PRN Reason: Mild Correctional Scale Last Admin: 12/20/18 11:38 Dose: 3 unit Isosorbide Dinitrate (Isordil) 20 mg PO BID [facility] Last Admin: 12/21/18 08:50 Dose: 20 mg Lactulose (Lactulose) 20 gm PO DAILYPRN PRN PRN Reason: Constipation Last Admin: 12/21/18 08:56 Dose: 20 gm Levothyroxine Sodium (Synthroid) 25 mcg PO 0600 [facility] Last Admin: 12/21/18 06:07 Dose: 25 mcg Melatonin (Melatonin) 3 mg PO [facility] Last Admin: 12/20/18 21:39 Dose: 3 mg Mometasone Furoate/Formoterol Fumar (Dulera 200 Mcg/5 Mcg Inhaler) 1 puff INH DAILY-RT [facility] Last Admin: 12/21/18 07:52 Dose: Not Given Montelukast Sodium (Singulair) 10 mg PO [facility] Last Admin: 12/20/18 21:39 Dose: 10 mg [facility]ifedipine ([facility]cardia Xl) [facility] Last Admin: 12/21/18 08:50 Dose: 60 mg Ondansetron HCl (Zofran Odt) 4 mg PO Q6H PRN PRN Reason: Nausea/Vomiting Ondansetron HCl (Zofran) 4 mg IVP Q6H PRN PRN Reason: Nausea/Vomiting Sodium Chloride (Flush - Normal Saline) 10 ml IVF Q12HR [facility] Last Admin: 12/21/18 08:51 Dose: 10 ml Sodium Chloride (Flush - Normal Saline) 10 ml IVF PRN PRN PRN Reason: Saline Flush Theophylline (Theophylline Er) 600 [facility] Last Admin: 12/21/18 08:52 Dose: Not Given
[2018-12-21] MEDS: Melatonin 3 MG TAB PO SCH (20:10)
[2018-12-21] MEDS: Montelukast Sodium 10 mg Tablet PO SCH (20:10)
[2018-12-21] MEDS: ALPRAZolam 0.25 MG TAB PO PRN (20:11)
[2018-12-22] MEDS: Acetaminophen 325 MG TAB PO PRN (01:21)
[2018-12-22] MEDS: guaiFENesin ER 600 MG TAB PO PRN (03:11)
[2018-12-22] MEDS: Levothyroxine Sodium 25 MCG TAB PO SCH (05:41)
[2018-12-22] MEDS ORDERED: Ibuprofen 200 MG TAB PO SCH (06:15)
[2018-12-22] MEDS: Mometasone/Formoterol 120 PUFF INHALER INH SCH (07:52)
[2018-12-22] MEDS: Amlodipine 10 MG TAB PO SCH (08:57)
[2018-12-22] MEDS: DULoxetine 30 MG CAP PO SCH (08:57)
[2018-12-22] MEDS: Isosorbide Dinitrate 20 MG TAB PO SCH (08:57)
[2018-12-22] MEDS: busPIRone HCl 5 MG TAB PO SCH (08:57)
[2018-12-22] MEDS: NIFEdipine XL 60 MG TAB PO SCH (08:57)
[2018-12-22] MEDS: AcetaZOLAMIDE 250 MG TAB PO SCH (08:58)
[2018-12-22] MEDS: hydrALAZINE 25 MG TAB PO SCH (08:58)
[2018-12-22] MEDS: Enoxaparin Sodium 40 MG/0.4 ML SYRINGE SC SCH (08:58)
[2018-12-22] MEDS: Ferrous Fumarate 324 MG TAB PO SCH (09:04)
[2018-12-22] MEDS: Benzonatate 100 MG CAP PO PRN (09:45)
--- NOTE | 2018-12-22 10:12 | PRG ---
DATE OF SERVICE: 12/22/2018 SUBJECTIVE: The patient is doing okay. She is expecting transfer to [facility] today. OBJECTIVE: VITAL SIGNS: On exam, temperature is 97.6, pulse is 53, respirations are 16, O2 saturation is 98%, blood pressure is 114/58. HEENT: Unremarkable. NECK: No JVD. Trach in good position. LUNGS: Clear. CARDIAC: S1, S2. Regular. ABDOMEN: Soft. EXTREMITIES: No overt edema. ASSESSMENT: 1. Severe chronic obstructive pulmonary disease, requiring tracheostomy. 2. Chronic respiratory failure. 3. Failure to thrive. PLAN: Expecting transfer to nursing facility today. No further recommendations at this time. Job ID: [id number]
[2018-12-22] MEDS ORDERED: Acetaminophen/Codeine 30-300mg Tablet PO SCH (11:00)
--- NOTE | 2018-12-22 14:29 | PDOC.PN ---
- Subjective Encounter Start Date: 12/22/18 Encounter Start Time: 07:45 Subjective: no sob, feels better -: c/o back pain and wants tylenol 3 - Objective Resuscitation Status - Order Detail: 12/18/18 23:32 Resuscitation Status Routine Resuscitation Status: FULL: Full Resuscitation MAR Reviewed: Yes Vital Signs & Weight: Vital Signs (12 hours) Temp Pulse Resp BP BP BP Pulse Ox 12/22/18 14:00 70 16 12/22/18 08:58 53 L 12/22/18 08:57 53 L 138/64 12/22/18 08:45 97.8 F 91 18 140/69 95 12/22/18 08:15 93 L 12/22/18 07:47 53 L 16 98 12/22/18 04:20 97.6 F 51 L 18 114/58 L 98 12/22/18 02:30 16 I&O: 12/21/18 12/22/18 12/23/18 06:59 06:59 06:59 Intake Total 1290 1480 Output Total 2475 3185 Balance -1185 -1705 Result Diagrams: 12/20/18 08:01 12/21/18 05:40 Additional Labs: Accuchecks 12/22/18 12/22/18 12/21/18 11:05 05:59 20:16 POC Glucose 206 H 114 H 154 H 12/21/18 17:10 POC Glucose 103 Phys Exam - Physical Examination HEENT: PERRLA, moist MMs Neck: no JVD trach+ Respiratory: no wheezing, no rales Cardiovascular: RRR, no significant murmur Gastrointestinal: soft, non-tender, positive bowel sounds Musculoskeletal: no edema, pulses present Neurological: non-focal, moves all 4 limbs Psychiatric: normal affect, A&O x 3 Dx/Plan (1) Acute on chronic respiratory failure with hypercapnia Code(s): J96.22 - ACUTE AND CHRONIC RESPIRATORY FAILURE WITH HYPERCAPNIA Status: Resolved Comment: resolved (2) COPD with exacerbation Code(s): J44.1 - CHRONIC OBSTRUCTIVE PULMONARY DISEASE W (ACUTE) EXACERBATION Status: Resolved (3) Chronic anemia Code(s): D64.9 - ANEMIA, UNSPECIFIED Status: Chronic (4) DM type 2 (diabetes mellitus, type 2) Status: Chronic Qualifiers: Diabetes mellitus joint terminal attack controller insulin use: with chcf use Diabetes mellitus complication status: with unspecified complications Qualified Code(s) : E11.8 - Type 2 diabetes mellitus with unspecified complications; Z79.4 - ocean transportation intermediary (current) use of insulin (5) Dyslipidemia Code(s): E78.5 - HYPERLIPIDEMIA, UNSPECIFIED Status: Chronic (6) HTN (hypertension) Code(s): I10 - ESSENTIAL (PRIMARY) HYPERTENSION Status: Chronic Qualifiers: (7) Obesity Code(s): E66.9 - OBESITY, UNSPECIFIED Status: Chronic Qualifiers: Obesity type: unspecified obesity type Serious obesity comorbidity presence : with serious comorbidity - Plan hemostable -: dc pt to snf in [place] area closer to son -: d/w pt at bedside * .
[2018-12-22 18:16] VITALS: BP 128/70; TEMP 97.5
--- NOTE | 2018-12-23 11:30 | DIS ---
DATE OF ADMISSION: 12/18/2018 DATE OF DISCHARGE: 12/22/2018 DISCHARGE DISPOSITION: To [facility] in [place]. PRIMARY DISCHARGE DIAGNOSES: Acute on chronic respiratory failure with hypercapnia and hypoxia; chronic obstructive pulmonary disease, likely end stage with exacerbation; chronic tracheostomy status; chronic anemia; diabetes mellitus type 2; dyslipidemia; hypertension; and obesity. PROCEDURES DONE DURING HOSPITALIZATION: Chest x-ray done on the day of admission showed cardiomegaly, chronic lung changes. H and H 10 and 29, platelet count 244, MCV is 87, white count of 8 with 68% neutrophils. Blood gas done on the day of admission showed a pH of 7.38, pCO2 of 81, pO2 of 59. Serum bicarb was 42 due to chronic compensation for her respiratory acidosis. BUN 48, creatinine 1.2 on the day of discharge. Troponin x3 negative. BNP 48. DISCHARGE MEDICATIONS: 1. Xanax 0.25 mg p.o. q.h.s. p.r.n. 2. Norvasc 10 mg p.o. daily. 3. Buspirone 5 mg p.o. twice daily. 4. Colace 100 mg p.o. twice daily p.r.n. 5. Cymbalta 30 mg p.o. daily. 6. Ferrous fumarate 106 mg p.o. daily. 7. DuoNeb q.4 hourly p.r.n. 8. Hydralazine 25 mg p.o. three times daily. 9. Isordil 20 mg twice daily. 10. Levothyroxine 25 mcg p.o. q.a.m. 11. Claritin 10 mg p.o. daily. 12. Melatonin 3 mg p.o. q.h.s. 13. Singulair 10 mg p.o. q.h.s. 14. Diamox 250 mg p.o. twice daily for another 15 days for metabolic alkalosis. 15. Lantus 15 units subcu daily. 16. Lactulose 30 mL p.o. daily that is total of 20 g. ALLERGIES: TO INFLUENZA VIRUS VACCINE WHICH IS TRIVALENT, IODINE, MORPHINE, SHELLFISH, AND STATINS. INPATIENT CONSULT: Dr. Valerio for Pulmonology. DISCHARGE PLAN: The patient to follow up with her director of enterprise strategy in [facility] and primary care physician in 1 week. BRIEF COURSE DURING HOSPITALIZATION: The patient initially was brought to emergency room on the with complaints of severe shortness of breath. She has known history of end-stage COPD and has chronic respiratory failure with the Trilogy ventilator. She was found to be in acute respiratory failure with hypercapnia and hypoxia. She was briefly on BiPAP and later transitioned to the Trilogy ventilator during her stay here. Ms. Lewis was placed on antibiotics along with steroids and bronchodilators. She has had consultation with Dr. Valerio for Pulmonology. The patient responded well to above measures. She has severe metabolic alkalosis and was placed on acetazolamide. Her Lasix was scaled down due to this. Due to chronic deconditioning with recurrent hospitalization prior to arrival here, the patient is being discharged to [facility] in [place]. She needs to follow up with her director of enterprise strategy in 1 week. A total of 40 minutes was spent on discharge plan. Please see a [id number] documentation for the day of discharge on [employer]. Job ID: [id number]
== END 2018-12-22 14:44 | DRG 208 ==
LOC: ERS 19:59 → ERHOLD 20:05 → 2NO 12-19 19:11
PROVIDERS: ADMIT Hospitalist; ATTEND Hospitalist
PROC: 5A1935Z Respiratory Ventilation, Less than 24 Consecutive Hours (ICD-10-PCS; principal; 2018-12-19)
DX: J96.21 Acute and chronic respiratory failure with hypoxia (principal); E87.3 Alkalosis; J44.1 Chronic obstructive pulmonary disease with (acute) exacerbation; E78.5 Hyperlipidemia, unspecified; J96.22 Acute and chronic respiratory failure with hypercapnia; F41.9 Anxiety disorder, unspecified; F32.9 Major depressive disorder, single episode, unspecified; E66.01 Morbid (severe) obesity due to excess calories; N18.3 Chronic kidney disease, stage 3 (moderate); E11.22 Type 2 diabetes mellitus with diabetic chronic kidney disease; D63.1 Anemia in chronic kidney disease; I12.9 Hypertensive chronic kidney disease with stage 1 through stage 4 chronic kidney disease, or unspecified chronic kidney disease; Z88.8 Allergy status to other drugs, medicaments and biological substances; Z93.0 Tracheostomy status; Z79.4 Long term (current) use of insulin; Z79.899 Other long term (current) drug therapy; Z79.01 Long term (current) use of anticoagulants; Z91.041 Radiographic dye allergy status; Z91.013 Allergy to seafood
CPT/HCPCS: 36415; 36416; 71045; 80048; 80053; 82805; 83880; 84484; 85025; 93005; 94640; 94660; 96374; 96375; J0360; J1650; J1825; J1940; J2930; J7512; J7620